=== PATIENT | female | born 1995 | race Caucasian/White ===

== ENCOUNTER 2016-12-02 19:27 | Emergency (ER) | payer MEDICAID ==
[~2016-12-02] VITALS: Ht 162.6 cm; Wt 81.6 kg
[~2016-12-02 19:27] MED LIST: DEPAKOTE500 MG PO; DESYREL GENERIC50 MG PO; METHYLPHENIDATE27 M1 PO; NOMEDS XX; RISPERDAL 0.50.5 MG PO
[2016-12-02 19:47] LABS: URINE BILIRUBIN - DIPSTICK NEGATIVE (NEG); URINE BLOOD NEGATIVE (NEG)
--- OUTSIDE RECORDS SUMMARY | 2016-12-02 19:54 | External Medical Summary Rpt ---
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 Interpretat Reference Comment ion Range Body 98.3 [degF] Temperature BP 81 mm[Hg] Diastolic BP Systolic 133 mm[Hg] O2% 99 % Respiratory 21 /min Rate 07-15-2013 17:20 Name Value Interpretat Reference Comment ion Range Body 98.3 [degF] Temperature BP 81 mm[Hg] Diastolic BP Systolic 133 mm[Hg] Heart 87 /min Rate/Pulse O2% 99 % Respiratory 21 /min Rate 02-13-2013 16:45 Name Value Interpretat Reference Comment ion Range BP 56 mm[Hg] Diastolic BP Systolic 124 mm[Hg] Heart 76 /min Rate/Pulse O2% 99 % Respiratory 20 /min Rate 02-13-2013 16:43 Name Value Interpretat Reference Comment ion Range BP 56 mm[Hg] Diastolic BP Systolic 124 mm[Hg] Heart 84 /min Rate/Pulse O2% 99 % Respiratory 20 /min Rate Results Labs Lab Lab Date Result Refere Interp Status Commen Order Detail nces retati t Range on B-HCG Ur Ql (07-15-2013 16:30) B-HCG NEGATIV NEG complet Ur Ql 014 E ed 16:30 URINALYSIS/COMPLETE (07-15-2013 16:30) URINE YELLOW YELLOW complet COLOR 014 ed 16:30 URINE CLEAR CLEAR complet APPEARA 014 ed NCE 16:30 URINE NEGATIV NEG complet GLUCOSE 014 E ed - 16:30 DIPSTIC K URINE NEGATIV NEG complet BILIRUB 014 E ed IN - 16:30 DIPSTIC K URINE NEGATIV NEG complet KETONE 014 E mg/dL ed 16:30 URINE 1.020 1.005-1 complet SPECIFI 014 UNK .030 ed C 16:30 GRAVITY URINE 3+ NEG complet BLOOD 014 ed 16:30 URINE 6.5 UNK 5.0-8.5 complet PH 014 ed 16:30 URINE NEGATIV NEG complet PROTEIN 014 E mg/dL ed - 16:30 DIPSTIC K URINE 0.2 NEG complet UROBILI 014 E.U./dL ed NOGEN - 16:30 DIPSTIC K URINE NEGATIV NEG complet NITRATE 014 E ed - 16:30 DIPSTIC K URINE NEGATIV NEG complet LEUK 014 E ed ESTERAS 16:30 E URINE 10-20 0 complet RBC 014 rbc/hpf ed 16:30 URINE 20-50 0-5 complet SQUAMOU 014 #/hpf ed S CELLS 16:30 URINE 1+ O complet BACTERI 014 ed A 16:30 COMPREHENSIVE METABOLIC PANEL (07-15-2013 16:15) Glucose 87 74-106 complet 014 mg/dL ed Bld-mCn 16:15 c BUN 9 mg/dL 7-18 complet Bld-mCn 014 ed c 16:15 Creat 0.8 0.6-1.0 complet SerPl-m 014 mg/dL ed Cnc 16:15 Creat 105 50-200 complet Cl 014 ML/MIN ed predict 16:15 ed SerPl C-G-vRa te GFR/BSA 92 59- complet .pred 014 ML/MIN ed SerPl 16:15 Schwart z-vRate Sodium 139 136-145 complet SerPl-s 014 mmoL/L ed Cnc 16:15 Potassi 4.0 3.5-5.1 complet um 014 mmoL/L ed SerPl-s 16:15 Cnc Chlorid 102 98-107 complet e 014 mmoL/L ed SerPl-s 16:15 Cnc CO2 27 21.0-32 complet SerPl-s 014 mmoL/L .0 ed Cnc 16:15 Calcium 8.9 8.5-10. complet 014 mg/dL 1 ed SerPl-m 16:15 Cnc Prot 8.0 6.4-8.2 complet SerPl-m 014 gm/dL ed Cnc 16:15 Albumin 4.2 3.4-5.0 complet 014 gm/dL ed SerPl-m 16:15 Cnc Globuli 3.8 1.3-3.2 complet n 014 gm/dL ed Ser-mCn 16:15 c Albumin 1.1 UNK 1.1-1.8 complet /Glob 014 ed SerPl-m 16:15 Rto Bilirub 0.2 0.2-1.0 complet 014 mg/dL ed SerPl-m 16:15 Cnc AST 6 U/L 15-37 complet SerPl-c 014 ed Cnc 16:15 ALT 15 U/L 12-78 complet SerPl-c 014 ed Cnc 16:15 ALP 96 U/L 50-136 complet SerPl-c 014 ed Cnc 16:15 LIPASE (07-15-2013 16:15) LIPASE 97 U/L 73-393 complet 014 ed 16:15 Valproate SerPl-mCnc (07-15-2013 16:15) Valproa 50.3 50-100 complet te 014 mcg/mL ed SerPl-m 16:15 Cnc CBC with AUTO DIFF (07-15-2013 16:15) WBC # 07-15-2 6.6 4.5-13. complet Bld 014 K/MM3 0 ed Auto 16:15 RBC # 07-15-2 4.93 4.2-5.4 complet Bld 014 M/mm3 ed Auto 16:15 Hgb 13.4 12.2-16 complet Bld-mCn 014 g/dL .2 ed c 16:15 Hct Fr 39.7 % 37.0-47 complet Bld 014 .0 ed 16:15 MCV RBC 80.6 fl 82.2-97 complet 014 .8 ed 16:15 MCH RBC 27.1 pg 27-31.2 complet Qn 014 ed Auto 16:15 MEAN 33.6 31.8-35 complet CORPUSC 014 g/dl .4 ed ULAR 16:15 HGB CONC RDW RBC 07-15-2 15.4 % 11.5-17 complet Auto 014 .5 ed 16:15 Platele 2 186 142-424 complet t Bld 014 K/mm3 ed Ql 16:15 Manual MEAN 8.6 fl 7.4-10. complet PLATELE 014 4 ed T 16:15 VOLUME Granulo 01-30-2 66.4 % 37.0-80 complet cytes 014 .0 ed Fr Bld 16:15 Auto LYMPH % -30-2 26.8 % 10-50.0 complet 014 ed 16:15 Monocyt -30-2 5.7 % 1.7-9.3 complet es Fr 014 ed Bld 16:15 Auto Eosinop -30-2 0.7 % 0.1-12. complet hil Fr 014 0 ed Bld 16:15 Auto Basophi -30-2 0.3 % 0.1-2.0 complet ls Fr 014 ed Bld 16:15 Auto Granulo -30-2 4.4 1.8-7.8 complet cytes # 014 K/mm3 ed Bld 16:15 Auto Lymphoc -30-2 1.8 0.7-4.5 complet ytes Fr 014 K/mm3 ed Bld 16:15 Auto Monocyt -30-2 0.4 0.1-1.0 complet es # 014 K/mm3 ed Bld 16:15 Auto Eosinop -30-2 0.1 0.0-0.4 complet hil # 014 K/mm3 ed Bld 16:15 Auto Basophi -30-2 0.0 0-0.2 complet ls # 014 K/MM3 ed Bld 16:15 Auto Procedures Procedure DOS Code Location Performer Comment OPHTH 27315 SCIFRES SCIFRES MEDICAL 6 ANG ANG XM&EVAL COMPRHNSV ESTAB PT 1/> IADNA 68460 JUD[facility] KIM NEISSERIA 6 [facility] GONORRHOE AE AMPLIFIED PROBE TQ IADNA 15850 JUDY KIM CHLAMYDIA 6 [facility] INC TRACHOMAT IS AMPLIFIED PROBE TQ REMOVAL 01624 [facility] NON-BIODE 6 PHYSICIAN PHYSICIAN GRADABLE S GROUP S GROUP DRUG DELIVERY IMPLANT FRAMES V2020 SCIFRES SCIFRES PURCHASES 5 ANG ANG SCRATCH V2760 SCIFRES SCIFRES RESISTANT 5 ANG ANG COATING PER LENS LENS V2784 SCIFRES SCIFRES POLYCARBO 5 ANG ANG TOO OR EQUAL ANY INDEX PER LENS RPR&REFIT 18359 SCIFRES SCIFRES G 5 ANG ANG SPECTACLE S EXCEPT APHAKIA SPHERE V2200 SCIFRES SCIFRES BIFOCL 5 ANG ANG PLANO TO PLUS/[place] S 4.00D PER LENS OPHTH 21801 SCIFRES SCIFRES MEDICAL 5 ANG ANG XM&EVAL COMPRHNSV ESTAB PT 1/> FRAMES V2020 SCIFRES SCIFRES PURCHASES 5 ANG ANG SCRATCH V2760 SCIFRES SCIFRES RESISTANT 5 ANG ANG COATING PER LENS LENS V2784 SCIFRES SCIFRES POLYCARBO 5 ANG ANG TOO OR EQUAL ANY INDEX PER LENS FITTING 08303 SCIFRES SCIFRES SPECTACLE 5 ANG ANG S XCPT APHAKIA MONOFOCAL SPHERE V2100 SCIFRES SCIFRES SINGLE 5 ANG ANG VISION PLANO +/- 4.00 PER LENS ANTIBODY 58011 COMBINED COMBINED CHLAMYDIA 4 PHYSICIAN PHYSICIAN S LA S LA CUL BACT 11414 COMBINED COMBINED XCPT 4 PHYSICIAN PHYSICIAN URINE S LA S LA BLOOD/STO OL AEROBIC ISOL SMR PRIM 17690 MARGIE [facility]ANSON SRC WET 4 [facility]IE ASHL[facility] MOUNT NFCT AGT ETONOGEST J7307 MARGIE HANSON REL 4 ASHLIE ASHLIE CNTRACPT IMPL SYS INCL IMPL & SPL URINE 32912 MARGIE HANSON 4 ASHLIE ASHLIE TEST VISUAL COLOR CMPRSN METHS RMVL 14080 MARGIE HANSON W/RINSJ 4 ASHLIE [place] [address] ADALBERTO ADALBERTO ABDOMEN & 4 GABRIELA GABRIELA PELVIS W/O CONTRAST MATERIAL TDAP 61693 JUDY KIM VACCINE 7 3 [facility] YRS/> IM INC INC IM ADM 54853 JUDY KIM PRQ ID 3 [facility] SUBQ/IM INC INC NJXS 1 VACCINE SIMPLE 62872 YOLIS LAGOS JAD REPAIR 3 SCALP/NEC K/AX/SANDRA T/TRUNK 2.5CM/< OPHTH 61554 [facility]ICAL 3 CHR CHR XM&EVAL INTERMEDI ATE NEW PT DETERMINA 63906 [facility] TION 3 CHR CHR REFRACTIV E STATE SMR PRIM 87090 MARGIE HANSON SRC WET 2 ASHLIE ASHLIE MOUNT NFCT AGT SBSQ 15095 JOSE ALEJANDRO [facility] 1 CARE/DAY 15 MINUTES INITIAL 01573 JOSE ALEJANDRO [facility] INPATIENT 1 CONSULT NEW/ESTAB PT 20 MIN ECG 07862 YANIV SEVILLA SEVILLA YANIV ROUTINE 1 MD ECG CONSULTIN W/LEAST G SRV 12 LDS I&R ONLY ETONOGEST J7307 [facility] REL 1 [facility] CNTRACPT CLINIC OF IMPL SYS PAYAM INCL IMPL & SPL URINE 90789 WOMEN'Chidi HANSON 1 HEALTH ASH[facility]IE TEST CLINIC OF VISUAL [place] COLOR CMPRSN METHS INSERTION 04866 [facility] MARGIE 1 HEALTH ASH[facility]IE IMPLANTAB CLINIC OF LE PAYAM CONTRACEP TIVE CAPSULES ECG 62871 YANIV SEVILLA SEVILLA YANIV ROUTINE 0 MD ECG CONSULTIN W/LEAST G SRV 12 LDS I&R ONLY INITIAL 40903 [facility], INPATIENT 9 URGENT KAL C CONSULT TREATMENT NEW/ESTAB ASSOC PT 55 MIN ELECTROEN 20068 MARTIN BELTRAN CEPHALOGR 8 MEDICAL TOUFIC A AM W/REC SERV [facility] WSY OPHTH 39023 DIANA ORTIZ MEDICAL 8 JEREMIAH A JEREMIAH A XM&EVAL COMPRHNSV ESTAB PT 1/> FRAMES V2020 DIANA ORTIZ, PURCHASES 8 JEREMIAH A JEREMIAH A FITTING 97303 DIANA ORTIZ SPECTACLE 8 JEREMIAH A JEREMIAH A S XCPT APHAKIA MONOFOCAL SPHERE V2100 DIANA ORTIZ SINGLE 8 JEREMIAH A JEREMIAH A VISION PLANO +/- 4.00 PER LENS BLOOD 54287 [facility] JUDY COUNT 8 [facility] N BANK ACCT CLOSURE 86.59 Usha MATHUR & Yolis SALGADO SUBCUTANE OUS NEC Encounters Encounter Start End Date Code Location Performer Type Date HOSPITAL JUDY - 6 6 [facility] OUTPATIEN INC T OFFICE 36382 [facility] MARGIE OUTPATIEN 6 6 PHYSICIAN ASHLIE T VISIT S GROUP 15 MINUTES EMERGENCY 64477 JUSTYNA SIMMS 6 6 PHYSICIAN ADITI DEPARTMEN S, PLLC T VISIT MODERATE SEVERITY OFFICE 46803 [facility] MARGIE OUTPATIEN 5 5 PHYSICIAN ASHLIE T VISIT S GROUP 15 MINUTES OFFICE 44739 MARGIE HANSON OUTPATIEN 4 4 ASHLIE ASHLIE T VISIT 15 MINUTES EMERGENCY 17969 ALFARIS ALFARIS 4 4 [facility] DEPARTMEN T VISIT MODERATE SEVERITY OFFICE 94113 MIKE JR OLLIERAN JR CONSULTAT 4 4 CHAPINCITO CHAPINCITO ION NEW/ESTAB PATIENT 60 MIN Emergency AJAY JOHNSTON MD (ER) 4 15:49 4 17:42 [facility] EMERGENCY 18937 PRESTON JOHNSTON 4 4 [facility]IS[facility] HIGH/URGE NT SEVERITY Emergency AJAY Lagos MD (ER) 3 16:21 3 16:45 [facility] JUDY - 3 3 [facility] OUTPATIEN INC T EMERGENCY 09673 JUDY 3 3 [facility] DEPARTMEN INC T VISIT MODERATE SEVERITY EMERGENCY [address] 3 3 DEPARTMEN T VISIT HIGH/URGE NT SEVERITY EMERGENCY 67548 [facility] 3 3 N DEPARTMEN COMMUNITY T VISIT HOSPITA LOW/MODER SEVERITY [facility] 3 3 N OUTPATIEN COMMUNITY T HOSPITA EMERGENCY 78466 [facility] 3 3 EMERGENCY [facility] DEPARTMEN SERVICES T VISIT MODERATE SEVERITY OFFICE 42947 MARGIE [facility]ANSON OUTPATIEN 2 2 ASHLIE ASHLIE T VISIT 15 MINUTES OFFICE 08926 [facility] 1 1 [facility]ALTH [facility] T VISIT CLINIC OF 15 PAYAM MINUTES OFFICE 82671 [facility] 1 1 HEALTH ASHLIE T NEW 30 CLINIC OF MINUTES PAYAM OFFICE 84264 [facility] OUTPATIEN 1 1 DON DON T VISIT 15 MINUTES OFFICE 20833 [facility] OUTPATIEN 0 0 DON DON T VISIT 15 MINUTES OFFICE 33973 [facility] OUTPATIEN 0 0 DON DON T VISIT 15 MINUTES OFFICE 34375 MARTÍNEZTANYA PENALOZA OUTPATIEN 0 0 DON R DON R T VISIT 15 MINUTES OFFICE 72944 [place] [facility], CONSULTAT 9 9 MEDICAL GARRETEDD CROOKS SERV NEW/ESTAB [facility]OUND[facility] PATIENT 40 MIN OFFICE 33490 TANYA MARTÍNEZ OUTPATIEN 9 9 DON R DON R T VISIT 15 MINUTES OFFICE 35864 TANYA MARTÍNEZ OUTPATIEN 9 9 DON R DON R T VISIT 15 MINUTES OFFICE 92821 TANYA MARTÍNEZ OUTPATIEN 8 8 DON R DON R T VISIT 15 MINUTES [facility] - 8 8 Y [facility] T OFFICE 86586 TANYA MARTÍNEZ OUTPATIEN 8 8 DON R DON R T VISIT 15 MINUTES OFFICE 74128 TANYA MARTÍNEZ OUTPATIEN 8 8 DON R DON R T VISIT 15 MINUTES INITIAL 82950 [facility] JUDY PREVENTIV 8 8 [facility] MEDIC[facility] B[facility] ACCT NEW PT AGE 12-17 YR
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
--- OUTSIDE RECORDS SUMMARY | 2016-12-02 19:58 | External Medical Summary Rpt ---
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 Role Phone ALFARIS MOH, ALFARIS Unavailable Unavailable MOH ALFARIS MOH, ALFARIS Unavailable Unavailable MOH ALLRAN JR CHAPINCITO, ALLRAN Unavailable Unavailable JR HCAPINCITO ALLRAN JR CHAPINCITO, ALLRAN Unavailable Unavailable JR CHAPINCITO JOHNSTON BRO, JOHNSTON Unavailable Unavailable BRO BAY, GARRET A, BAY, Unavailable Unavailable GARRET A HUNTER, KAL C, Unavailable Unavailable HUNTER, KAL C HANSON ASHLIE, HANSON Unavailable Unavailable ASHLIE HANSON ASHLIE, HANSON Unavailable Unavailable ASHLIE [facility] Unavailable [place]available [place], [facility] Unavailable Unavailable [facility], [facility] SEVILLA YANIV, SEVILLA YANIV Unavailable Unavailable ADALBERTO GABRIELA, Unavailable Unavailable ADALBERTO GABRIELA ADALBERTO GABRIELA, Unavailable Unavailable ADALBERTO GABRIELA [facility] [place] [place], [facility] [place] [facility] [place] [facility] DEVIN, TOUFIC A, Unavailable Unavailable DEVIN, TOUFIC A FOSTER JAM, FOSTER Unavailable Unavailable JAM DEMI ADITI, DEMI Unavailable Unavailable ADITI [facility] Unavailable Unavailable HOSPITA, [facility] Unavailable Unavailable CENTER, [facility] Unavailable Unavailable INC, [facility] ORTIZ JEREMIAH A, Unavailable Unavailable ORTIZ JEREMIAH A [facility], Unavailable Unavailable [facility] JOSE ALEJANDRO TODD Unavailable Unavailable JOSE ALEJANDRO TODD Unavailable Unavailable [facility] Unavailable Unavailable SERVICES, [facility], [facility] Unavailable Unavailable [facility], [facility] Unavailable Unavailable CHR YANIV SEVILLA MD Unavailable Unavailable CONSULTING SRV, YANIV SEVILLA MD CONSULTING SRV [facility], Unavailable [facility]available [facility], [facility] Unavailable [facility]available [id number] [id number], [facility] [id number] [address] [id number] SCIFRES ANG, SCIFRES Unavailable Unavailable ANG SCIFRES ANG, SCIFRES Unavailable Unavailable ANG MARTÍNEZ DON, Unavailable Unavailable MARTÍNEZ DON MARTÍNEZ DON, Unavailable Unavailable MARTÍNEZ DON MARTÍNEZ, DON R, Unavailable Unavailable MARTÍNEZ, DON R [facility], Unavailable Unavailable [facility] Unavailable Unavailable [address]591, [facility] YOLIS ROSALES Unavailable Unavailable YOLIS ROSALES Unavailable Unavailable [facility] Unavailable Unavailable OF [place], [facility] [place] Purpose Continuity of Care Document - 09-30-2007 through 2016 Problems Code Diagnosis DOS Provider Status 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 N926 IRREGULAR 11-21-2015 [facility]IO PHYSICIANS N GROUP UNSPECIFIED Z7251 HIGH RISK 11-21-2015 [facility] R109 UNSPECIFIED 09-09-2015 [facility] Z3040 ENCOUNTER 08-01-2015 [facility] FOR [facility] SURVEILLANC GROUP E CONTRACEPTI VES UNS Z3049 ENCOUNTER 08-01-2015 [facility] SURVEILLANC GROUP E OTHER CONTRACEPTI VES 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 3674 PRESBYOPIA 12-01-2014 SCIFRES ANG 3671 MYOPIA 06-30-2014 SCIFRES ANG V692 PROBLEMS 02-03-2014 COM[facility]ED RELATED TO PHYSICIANS HIGH-RISK LA SEXUAL BEHAVIOR 60877 UNSPECIFIED 02-02-2014 HANSON ASHLIE VAGINITIS AND VULVOVAGINI TIS 6235 LEUKORRHEA 02-02-2014 HANSON ASHLIE NOT SPECIFIED INFECTIVE 7245 UNSPECIFIED 12-29-2013 [facility] BACKACHE 8479 SPRAIN AND 12-29-2013 [facility] STRAIN OF UNSPECIFIED SITE OF BACK E9289 UNSPECIFIED 12-29-2013 [facility] ACCIDENT V2543 SURVEILLANC 09-07-2013 HANSON ASHLIE E PREV PRSC IMPL SUBDERMAL CONTRACEPT V255 INSERTION 09-07-2013 HANSON [place]SHLIE [place] [address] CALCU 08-03-2013 MIKE GARCIAADD CHAPINCITO W/ACUT CHOLCYST W/O MENTION OBST 64955 CALCU 07-15-2013 ADALBERTO LUIS GABRIELA W/O MENTION CHOLECYST/O BST 8920 OPEN WOUND 02-13-[address] FT NO TOE ALONE WITHOUT MENTION COMP V065 NEED 02-13-2013 [facility]LACTI [facility] VACCINATION W/TETANUS-D [facility] 18866 UNSPECIFIED 07-01-2012 [facility] ESOTROPIA 3829 UNSPECIFIED 06-27-2012 [facility] 7061 OTHER ACNE 03-14-2011 JOSE ALEJANDRO [place] V5869 LONG-TERM 03-14-2011 YANIV SEVILLA (CURRENT) USE OF CONSULTING OTHER SRV MEDICATIONS V2502 GENERAL 08-29-2010 [facility] [place] CONTRACEPT MEASURES V2509 OT GENERAL 08-29-2010 [facility] CONTRACEPT [place] MANAGEMENT 4659 ACUTE URIS 08-17-2010 MARTÍNEZ OF DON UNSPECIFIED SITE 4660 ACUTE 08-17-2010 MARTÍNEZ BRONCHITIS DON 9198 OTH&UNS SUP 06-13-2010 MARTÍNEZ INJR OTH DON MX&UNS SITE W/O MENTION INF 4779 ALLERGIC 05-09-2010 TANYA RHINITIS DON CAUSE UNSPECIFIED 684 IMPETIGO 09-26-2009 EMANUEL MARTÍNEZ R 7421 MICROCEPHAL 03-28-2009 [place] [facility] 49047 INSOMNIA 12-05-2008 [place] [place] UNSPECIFIED [facility] 39211 OTHER 05-25-2008 [place] [facility] V7189 OBSERVATION 05-25-2008 [facility] SPECIFIED SUSPECTED CONDITIONS 3670 HYPERMETROP 03-25-2008 PREET ORTIZ 6869 UNSPEC 03-16-2008 TANYA LOCAL DON R INFECTION SKIN&SUBCUT ANEOUS TISSUE 76529 UNSPEC 12-15-2007 TANYA EPILEPSY DON R WITHOUT MENTION INTRACT EPILEPSY V202 ROUTINE 09-30-2007 [facility] ACCT CHECK Medications Na ND Rx Da Fi Fi Am Da Di Ph RX Ph St me C No te ll ll ou ys ag ar # ys at rm s nt no ma ic us Or Da si cy ia de te s n re d CO 50 10 10 0 30 30 [...] .0 ST 58 EP ti AL 33 9- 9- 00 SI 73 HE ve EX 14 20 [...] 1- 1- 00 SI 77 HE ve MO 50 20 20 DE NS AM 81 10 10 3 PH DO HB AR N R MA R 20 CY MG OF TA CY BL NT ET HI AN A CO 50 08 08 [address] Ac NC 45 -0 -[address] 64 EP ti ER 80 9- 9- 00 SI 49 HE ve TA 58 [...] 7- 7- 00 SI 21 Av ve MO 00 20 20 DE ai AM 70 10 10 la 5 PH bl HB AR e R MA 40 CY MG OF TA CY BL NT ET HI AN A CO 50 07 07 0 30 30 EA 18 No Ac NC 45 -0 -[address] 26 t ti ER 80 7- 7- 00 SI 00 Av ve TA 58 20 [...] 7- 7- 00 SI 21 Av ve MO 34 20 20 DE ai AM 40 10 10 la 5 PH bl HB AR e R MA 40 CY MG OF TA CY BL NT ET HI AN A HY 00 06 06 1 30 30 EA [address] 55 -1 -[address] 02 t ti OX 50 7- 7- 00 SI 22 Av ve YZ 32 20 20 DE ai IN 30 10 10 la E 4 PH bl PA AR e M MA 25 CY MG OF CA CY P NT HI AN A CO 50 06 [...] 7- 7- 00 SI 37 HE ve MO 34 20 20 DE NS AM 30 [...] 3- 3- 00 SI 08 HE ve MO 34 20 20 DE NS AM 30 [...] ET NT HI AN A AB 59 02 03 1 30 30 EA 16 No Ac IL 14 -0 -[address] 29 t ti IF 80 8- 5- 00 SI 47 Av ve Y 00 20 20 DE ai 5 71 10 10 la MG 3 PH bl AR e TA MA BL CY ET OF CY NT HI AN A CI 55 02 03 1 45 30 EA 16 No Ac TA 11 -0 -[address] 29 t ti LO 10 8- 5- 00 SI 48 Av ve MO 34 20 20 DE ai AM 30 10 10 la 5 PH bl HB AR e R MA 20 CY MG OF TA CY BL NT ET HI AN A CI 00 02 02 00 45 30 EA 16 No Ac TA 37 -0 -[address] 29 t ti LO 86 8- 6- 00 SI 48 Av ve MO 23 20 20 DE ai AM 20 10 10 la 5 PH bl HB AR e R MA 20 CY MG OF CY TA NT BL HI ET AN A CO 50 02 02 00 30 30 EA 16 No Ac NC 45 -0 -[address] 29 t ti ER 80 8- 6- 00 SI 46 Av ve TA 58 20 20 DE ai 50 10 10 la ER 1 PH bl AR e 18 MA CY MG OF TA CY BL NT ET HI AN A AB 59 02 02 00 30 30 EA 16 No Ac IL 14 -0 -[address] 29 t ti IF 80 8- 6- 00 SI 47 Av ve Y 00 20 20 DE ai 5 71 10 10 la MG 3 PH bl AR e TA MA BL CY ET OF CY NT HI AN A CI 00 12 01 00 45 30 EA 15 No Ac TA 37 -1 -[address] 51 t ti LO 86 0- 4- 00 SI 48 Av ve MO 23 20 20 DE ai AM 20 09 10 la 5 PH bl HB AR e R MA 20 CY MG OF CY TA NT BL HI ET AN A AB 59 12 01 00 30 30 EA 15 No Ac IL 14 -1 -[address] 51 t ti IF 80 0- 4- 00 SI 54 Av ve Y 00 20 20 DE ai 5 71 09 10 la MG 3 PH bl AR e TA MA BL CY ET OF CY NT HI AN A CO 50 12 01 00 30 30 EA 15 No Ac NC 45 -1 -[address] 51 t ti ER 80 0- 4- 00 SI 56 Av ve TA 58 20 20 DE ai 50 09 10 la ER 1 PH bl AR e 18 MA CY MG OF TA CY BL NT ET HI AN A CI 55 11 12 01 15 30 EA 14 No Ac TA 11 -0 -[address] 93 t ti LO 10 2- 7- 00 SI 95 Av ve MO 34 20 20 DE ai AM 40 09 09 la 1 PH bl HB AR e R MA 40 CY MG OF CY TA NT BL HI ET AN A AB 59 11 12 01 30 30 EA 14 No Ac IL 14 -0 -[address] 93 t ti IF 80 2- 7- 00 SI 93 Av ve Y 00 20 20 DE ai 5 71 09 09 la MG 3 PH bl AR e TA MA BL CY ET OF CY NT HI AN A CO 50 11 12 00 30 30 EA 15 No Ac NC 45 -1 -[address] 19 t ti ER 80 8- 3- 00 SI 32 Av ve TA 58 20 20 DE ai 50 09 09 la ER 1 PH bl AR e 18 MA CY MG OF TA CY BL NT ET HI AN A TR 60 11 11 [...] 2- 9- 00 SI 95 Av ve MO 34 20 20 DE ai AM 40 [...] CY BL NT ET HI AN A TR 60 08 10 01 30 30 EA 14 No Ac AZ 50 -3 -[address] 05 t ti OD 52 1- 8- 00 SI 52 Av ve ON 65 20 20 DE ai E 30 09 09 la 50 1 PH bl AR e MG MA CY TA BL OF ET CY NT HI AN A AB 59 08 10 01 30 30 EA 14 No Ac IL 14 -3 -[address] 05 t ti IF 80 1- 8- 00 SI 54 Av ve Y 00 20 20 DE ai 5 71 09 09 la MG 3 PH bl AR e TA MA BL CY ET OF CY NT HI AN A CI 55 08 10 01 15 30 EA 14 No Ac TA 11 -3 -[address] 05 t ti LO 10 1- 8- 00 SI 53 Av ve MO 34 20 20 DE ai AM 40 09 09 la 1 PH bl HB AR e R MA 40 CY MG OF CY TA NT BL HI ET AN A CO 50 09 09 00 [...] 1- 0- 00 SI 53 Av ve MO 34 20 20 DE ai AM 40 09 09 la 1 PH bl HB AR e R MA 40 CY MG OF CY TA NT BL HI ET AN A MU 45 09 09 [address] Ac PI 80 -0 -[address] 10 EP ti RO 20 2- 0- 00 SI 55 HE ve CI 11 20 20 DE NS N 22 09 09 2% 2 PH DO AR N OI MA R NT CY ME NT OF CY NT HI AN A TR 60 07 08 01 [...] NT HI AN A CI 55 07 08 01 15 30 EA 13 GI Ac TA 11 -0 -[address] 36 LB ti LO 10 3- 3- 00 SI 85 ER ve MO 34 20 20 DE T AM 40 09 09 TA 1 PH ME HB AR LA R MA G 40 CY MG OF CY TA NT BL HI ET AN A AB 59 07 08 01 [...] HI AN A CO 50 08 08 00 [...] 3- 6- 00 SI 85 ER ve MO 34 20 20 DE T AM 40 [...] NT ET HI AN A AZ 00 12 12 [...] ET NT HI AN A CO 50 12 [...] er Refuse d TDAP COBB No VACCIN 2013 ON MEM E 7 HOSP YRS/> INC IM Procedures Procedure DOS Code Location Performer Comment OPHTH 13710 SCIFRES SCIFRES MEDICAL 6 ANG ANG XM&EVAL COMPRHNSV ESTAB PT 1/> IADNA 10685 JUDY KIM NEISSERIA 6 [facility] INC GONORRHOE AE AMPLIFIED PROBE TQ IADNA 40097 JUDY KIM CHLAMYDIA 6 [facility] INC TRACHOMAT IS AMPLIFIED PROBE TQ REMOVAL 98416 [facility] NON-BIODE 6 PHYSICIAN PHYSICIAN GRADABLE S GROUP S GROUP DRUG DELIVERY IMPLANT LENS V2784 SCIFRES SCIFRES POLYCARBO 5 ANG ANG TOO OR EQUAL ANY INDEX PER LENS SCRATCH V2760 SCIFRES SCIFRES RESISTANT 5 ANG ANG COATING PER LENS FRAMES V2020 SCIFRES SCIFRES PURCHASES 5 ANG ANG SPHERE V2200 SCIFRES SCIFRES BIFOCL 5 ANG ANG PLANO TO PLUS/[place]LAND[place] S 4.00D PER LENS RPR&REFIT 72632 SCIFRES SCIFRES G 5 ANG ANG SPECTACLE S EXCEPT APHAKIA OPHTH 30335 SCIFRES SCIFRES MEDICAL 5 ANG ANG XM&EVAL COMPRHNSV ESTAB PT 1/> LENS V2784 SCIFRES SCIFRES POLYCARBO 5 ANG ANG TOO OR EQUAL ANY INDEX PER LENS SCRATCH V2760 SCIFRES SCIFRES RESISTANT 5 ANG ANG COATING PER LENS FRAMES V2020 SCIFRES SCIFRES PURCHASES 5 ANG ANG SPHERE V2100 SCIFRES SCIFRES SINGLE 5 ANG ANG VISION PLANO +/- 4.00 PER LENS FITTING 58995 SCIFRES SCIFRES SPECTACLE 5 ANG ANG S XCPT APHAKIA MONOFOCAL CUL BACT 30171 COMBINED COMBINED XCPT 4 PHYSICIAN PHYSICIAN URINE S LA S LA BLOOD/STO OL AEROBIC ISOL ANTIBODY 61980 COMBINED COMBINED CHLAMYDIA 4 PHYSICIAN PHYSICIAN S LA S LA SMR PRIM 50535 MARGIE HANSON SRC WET 4 ASHLIE ASHLIE [facility] NFCT AGT ETONOGEST J7307 MARGIE HANSON REL 4 ASHLIE ASHLIE CNTRACPT IMPL SYS INCL IMPL & SPL RMVL 45854 MARGIE HANSON W/RINSJ 4 ASHLIE ASHLIE NON-BIODE GRADABLE DRUG DLVR IMPLT URINE 42362 MARGIE HANSON 4 ASHLIE ASHLIE [place] V[place] [address] ADALBERTO ADALBERTO ABDOMEN & 4 GABRIELA GABRIELA PELVIS W/O CONTRAST MATERIAL TDAP 51746 JUDY KIM VACCINE 7 3 [facility] YRS/> IM INC INC IM ADM 23854 JUDY KIM PRQ ID 3 [facility] SUBQ/IM INC INC NJXS 1 VACCINE SIMPLE 45194 JUDY KIM REPAIR 3 [facility] SCALP/NEC INC INC K/AX/SANDRA T/TRUNK 2.5CM/< DETERMINA 10743 [facility] TION 3 CHR CHR REFRACTIV E STATE OPHTH 02579 [facility] MEDICAL 3 CHR CHR XM&EVAL INTERMEDI ATE NEW PT SMR PRIM 54753 MARGIE HANSON SRC WET 2 ASHLIE ASHLIE [facility] NFCT AGT SBSQ 19052 [facility] 1 CARE/DAY 15 MINUTES INITIAL 15118 [facility] INPATIENT 1 CONSULT NEW/ESTAB PT 20 MIN ECG 19484 YANIV SEVILLA SEVILLA YANIV ROUTINE 1 MD ECG CONSULTIN W/LEAST G SRV 12 LDS I&R ONLY ETONOGEST J7307 [facility] REL 1 [facility]ALTH ASHLIE CNTRACPT CLINIC OF IMPL SYS [place] INCL IMPL & SPL URINE 21975 [facility] 1 HEALTH ASHLIE TEST CLINIC OF VISUAL [place] COLOR CMPRSN METHS INSERTION 59539 [facility] 1 [facility]ALTH ASHLIE IMPLANTAB CLINIC OF LE [place] CONTRACEP TIVE CAPSULES ECG 69477 YANIV SEVILLA SEVILLA YANIV ROUTINE 0 MD ECG CONSULTIN W/LEAST G SRV 12 LDS I&R ONLY INITIAL 46144 [facility] HUNTER, INPATIENT 9 URGENT KAL C CONSULT TREATMENT NEW/ESTAB ASSOC PT 55 MIN ELECTROEN 95745 MARTIN BELTRAN CEPHALOGR 8 MEDICAL TOUFIC A AM W/REC SERV [facility] WSY OPHTH 34545 DIANA ORTIZ, MEDICAL 8 JEREMIAH A JEREMIAH A XM&EVAL COMPRHNSV ESTAB PT 1/> FRAMES V2020 DIANA ORTIZ PURCHASES 8 JEREMIAH A JEREMIAH A FITTING 44194 DIANA ORTIZ SPECTACLE 8 JEREMIAH A JEREMIAH A S XCPT APHAKIA MONOFOCAL SPHERE V2100 DIANA ORTIZ SINGLE 8 JEREMIAH A JEREMIAH A VISION PLANO +/- 4.00 PER LENS BLOOD 24901 [facility] JUDY COUNT 8 [facility] ACCT Encounters Encounter Start End Date Code Location Performer Type Date OFFICE 35417 [facility] MARGIE JEFF 6 6 PHYSICIAN ASHLIE T VISIT S GROUP 15 MINUTES HOSPITAL JUDY - 6 6 [facility] OUTPATIEN INC T EMERGENCY 02984 JUSTYNA SIMMS 6 [facility] MODERATE SEVERITY OFFICE 91869 [facility] MARGIE JEFF 5 5 PHYSICIAN ASHLIE T VISIT S GROUP 15 MINUTES OFFICE 52924 MARGIE KEYPATIEN 4 4 ASHLIE ASHLIE T VISIT 15 MINUTES EMERGENCY 02350 ALFARIS ALFARIS 4 4 [facility] DEPARTMEN T VISIT MODERATE SEVERITY OFFICE 83970 MIKE MCKEON JR CONSULTAT 4 4 CHAPINCITO CHAPINCITO ION NEW/ESTAB PATIENT 60 MIN EMERGENCY 34430 [facility] 4 4 [facility] DEPARTMEN T VISIT HIGH/URGE NT SEVERITY EMERGENCY 51658 [facility] 3 3 [facility] DEPARTMEN INC T VISIT MODERATE SEVERITY HOSPITAL JUDY - 3 3 [facility] OUTPATIEN INC T EMERGENCY [address] 3 3 DEPARTMEN T VISIT HIGH/URGE NT SEVERITY HOSPITAL [facility] - 3 3 N OUTPATIEN COMMUNITY T HOSPITA EMERGENCY 78856 [facility] 3 3 N DEPARTMEN COMMUNITY T VISIT HOSPITA LOW/MODER SEVERITY EMERGENCY 72397 [facility] 3 3 EMERGENCY [facility] DEPARTMEN SERVICES T VISIT MODERATE SEVERITY OFFICE 75873 [facility] OUTPATIEN 2 2 ASHLIE ASHLIE T VISIT 15 MINUTES OFFICE 85026 [facility] 1 1 HEALTH ASHLIE T VISIT CLINIC OF 15 [place] MINUTES OFFICE 73596 [facility] 1 1 HEALTH ASHLIE T NEW 30 CLINIC OF MINUTES [place] OFFICE 56971 MARTÍNEZTREMAINE GRANTS OUTPATIEN 1 1 DON DON T VISIT 15 MINUTES OFFICE 39752 MARTÍNEZTREMAINE GRANTS OUTPATIEN 0 0 DON DON T VISIT 15 MINUTES OFFICE 46754 MARTÍNEZTREMAINE GRANTS OUTPATIEN 0 0 DON DON T VISIT 15 MINUTES OFFICE 56612 TANYA MARTÍNEZ, OUTPATIEN 0 0 DON R DON R T VISIT 15 MINUTES OFFICE 24057 MARTIN ROCHE, CONSULTAT 9 9 MEDICAL GARRET CROOKS SERV NEW/ESTAB FOUNDATIO PATIENT 40 MIN OFFICE 45517 TANYA MARTÍNEZ OUTPATIEN 9 9 DON R DON R T VISIT 15 MINUTES OFFICE 20990 TANYA MARTÍNEZ OUTPATIEN 9 9 DON R DON R T VISIT 15 MINUTES OFFICE 27374 TANYA MARTÍNEZ OUTPATIEN 8 8 DON R DON R T VISIT 15 MINUTES [facility] UNIVERSIT - 8 8 Y [facility] T OFFICE 12566 TANYA MARTÍNEZ OUTPATIEN 8 8 DON R DON R T VISIT 15 MINUTES OFFICE 31556 TANYA MARTÍNEZ OUTPATIEN 8 8 DON R DON R T VISIT 15 MINUTES INITIAL 60100 [facility] JUDY LANDAIV 8 8 [facility] MEDICINE BANK ACCT NEW PT AGE 12-17 YR
--- OUTSIDE RECORDS SUMMARY | 2016-12-02 19:58 | External Medical Summary Rpt ---
Author Author , Organization [employer] Address Unknown Phone Unavailable Care Team Providers Care Behavioral Health Specialist Name Role Phone ALFARIS MOH, ALFARIS Unavailable [...] GABRIELA ADALBERTO GABRIELA, Unavailable Unavailable ADALBERTO GABRIELA [facility] [place] [place], [facility] [place] [facility] [place] [facility] [place] DEVIN, TOUFIC A, Unavailable Unavailable DEVIN, TOUFIC A FOSTER JAM, FOSTER Unavailable Unavailable JAM DEMI ADITI, DEMI Unavailable Unavailable ADITI [facility] Unavailable Unavailable HOSPITA, [facility] Unavailable [facility]available CENTER, [facility] Unavailable Unavailable INC, [facility] ORTIZ JEREMIAH A, Unavailable Unavailable ORTIZ JEREMIAH A [facility], Unavailable Unavailable [facility] JOSE ALEJANDRO TODD Unavailable Unavailable JOSE ALEJANDRO TODD Unavailable Unavailable [facility] Unavailable Unavailable SERVICES, [facility] CH[facility], MCPEEK Unavailable Unavailable [facility] CH[facility], MCPEEK Unavailable Unavailable CHR YANIV SEVILLA MD Unavailable Unavailable CONSULTING SRV, YANIV SEVILLA MD [facility]ING [facility], Unavailable [facility]available [facility], [facility] Unavailable Unavailable [id number] [id number], [facility] [id number] [id number] SCIFRES ANG, SCIFRES Unavailable Unavailable ANG SCIFRES ANG, SCIFRES Unavailable Unavailable ANG MARTÍNEZ DON, Unavailable Unavailable MARTÍNEZ DON MARTÍNEZ DON, Unavailable Unavailable MARTÍNEZ DON MARTÍNEZ, DON R, Unavailable Unavailable MARTÍNEZ, DON R [facility], Unavailable Unavailable [facility] Unavailable Unavailable [address], [facility] YOLIS ROSALES Unavailable Unavailable YOLIS ROSALES Unavailable Unavailable [facility] Unavailable Unavailable OF [place], [facility] [place] Purpose Continuity of Care Document - 09-30-2007 through 2016 Problems Code Diagnosis DOS Provider Status 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 N926 IRREGULAR 11-21-2015 [facility] UNSPECIFIED Z7251 HIGH RISK 11-21-2015 [facility] R109 UNSPECIFIED 09-09-2015 [facility] Z3040 ENCOUNTER 08-01-2015 [facility] FOR [facility]ANS SURVEILLANC GROUP E CONTRACEPTI VES UNS Z3049 ENCOUNTER 08-01-2015 [facility] SURVEILLANC GROUP E OTHER CONTRACEPTI VES 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 3674 PRESBYOPIA 12-01-2014 SCIFRES ANG 3671 MYOPIA 06-30-2014 SCIFRES ANG V692 PROBLEMS 02-03-2014 COMBINED RELATED TO PHYSICIANS HIGH-RISK LA SEXUAL BEHAVIOR 13442 UNSPECIFIED 02-02-2014 [facility] VAGINITIS AND VULVOVAGINI TIS 6235 LEUKORRHEA 02-02-2014 [facility] NOT SPECIFIED INFECTIVE 7245 UNSPECIFIED 12-29-2013 [facility] BACKACHE 8479 SPRAIN AND 12-29-2013 [facility] STRAIN OF UNSPECIFIED SITE OF BACK E9289 UNSPECIFIED 12-29-2013 [facility] ACCIDENT V2543 SURVEILLANC 09-07-2013 [facility] E PREV PRSC IMPL SUBDERMAL CONTRACEPT V255 INSERTION 09-07-2013 [facility] [place] [address] CALCU 08-03-2013 MIKE GARCIAADD CHAPINCITO W/ACUT CHOLCYST W/O MENTION OBST 94356 CALCU 07-15-2013 ADALBERTO LUIS GABRIELA W/O MENTION CHOLECYST/O BST 8920 OPEN WOUND 02-13-[address] FT NO TOE ALONE WITHOUT MENTION COMP V065 NEED 02-13-2013 [facility]I [facility] VACCINATION W/TETANUS-D [facility] 79744 UNSPECIFIED 07-01-2012 [facility] ESOTROPIA 3829 UNSPECIFIED 06-27-2012 [facility] 7061 OTHER ACNE [...] MICROCEPHAL 03-28-2009 [place] [facility] 91051 INSOMNIA 12-05-2008 [place] [place] U[facility]PECIFIED [facility] 17505 OTHER 05-25-2008 [place] [facility] V7189 OBSERVATION 05-25-2008 [facility] SPECIFIED SUSPECTED CONDITIONS 3670 HYPERMETROP 03-25-2008 PREET ORTIZ 6869 UNSPEC 03-16-2008 [facility] LOCAL DON R INFECTION SKIN&SUBCUT ANEOUS TISSUE 73795 UNSPEC 12-15-2007 [facility] EPILEPSY DON R WITHOUT [...] 1- 1- 00 SI 77 HE ve NC 50 20 20 DE NS AM 81 [...] 7- 7- 00 SI 21 Av ve NC 00 20 20 DE ai AM 70 [...] 7- 7- 00 SI 21 Av ve NC 34 20 20 DE ai AM 40 [...] 7- 7- 00 SI 37 HE ve NC 34 20 20 DE NS AM 30 [...] 3- 3- 00 SI 08 HE ve NC 34 20 20 DE NS AM 30 [...] 8- 5- 00 SI 48 Av ve NC 34 20 20 DE ai AM 30 10 10 la 5 PH bl HB AR e R MA 20 CY MG OF TA CY BL NT ET HI AN A CI 00 02 02 00 45 30 EA 16 No Ac TA 37 -0 -[address] 29 t ti LO 86 8- 6- 00 SI 48 Av ve NC 23 20 20 DE ai AM 20 [...] 0- 4- 00 SI 48 Av ve NC 23 20 20 DE ai AM 20 [...] 2- 7- 00 SI 95 Av ve NC 34 20 20 DE ai AM 40 [...] 2- 9- 00 SI 95 Av ve NC 34 20 20 DE ai AM 40 [...] 1- 8- 00 SI 53 Av ve NC 34 20 20 DE ai AM 40 [...] 1- 0- 00 SI 53 Av ve NC 34 20 20 DE ai AM 40 [...] 3- 3- 00 SI 85 ER ve NC 34 20 20 DE T AM 40 [...] 3- 6- 00 SI 85 ER ve NC 34 20 20 DE T AM 40 [...] Procedure DOS Code Location Performer Comment OPHTH 85218 SCIFRES SCIFRES MEDICAL 6 ANG ANG XM&EVAL COMPRHNSV ESTAB PT 1/> IADNA 29868 [facility] KIM NEISSERIA 6 [facility] INC GONORRHOE AE AMPLIFIED PROBE TQ IADNA 62352 JUDY KIM CHLAMYDIA 6 [facility] INC TRACHOMAT IS AMPLIFIED PROBE TQ REMOVAL 61019 [facility] NON-BIODE 6 PHYSICIAN PHYSICIAN GRADABLE [...] TO PLUS/ORLANDO S 4.00D PER LENS RPR&REFIT 16339 SCIFRES SCIFRES G 5 ANG ANG SPECTACLE S EXCEPT APHAKIA OPHTH 49729 SCIFRES SCIFRES MEDICAL 5 ANG ANG XM&EVAL COMPRHNSV ESTAB PT 1/> LENS V2784 SCIFRES SCIFRES POLYCARBO 5 ANG ANG TOO OR EQUAL ANY INDEX PER LENS SCRATCH V2760 SCIFRES SCIFRES RESISTANT 5 ANG ANG COATING PER LENS FRAMES V2020 SCIFRES SCIFRES PURCHASES 5 ANG ANG SPHERE V2100 SCIFRES SCIFRES SINGLE 5 ANG ANG VISION PLANO +/- 4.00 PER LENS FITTING 77801 SCIFRES SCIFRES SPECTACLE 5 ANG ANG S XCPT APHAKIA MONOFOCAL CUL BACT 10863 COMBINED COMBINED XCPT 4 PHYSICIAN PHYSICIAN URINE S LA S LA BLOOD/STO OL AEROBIC ISOL ANTIBODY 58764 COMBINED COMBINED CHLAMYDIA 4 PHYSICIAN PHYSICIAN S LA S LA SMR PRIM 23185 [facility] SRC WET 4 [facility] A[facility] ETONOGEST J7307 MARGIE HANSON REL 4 ASHLIE ASHLIE CNTRACPT IMPL SYS INCL IMPL & SPL RMVL 41782 MARGIE HANSON W/RINSJ 4 ASHLIE ASHLIE NON-BIODE GRADABLE DRUG DLVR IMPLT URINE 01914 MARGIE HANSON 4 ASHLIE ASHLIE [place] V[place] [address] ADALBERTO ADALBERTO ABDOMEN & 4 GABRIELA GABRIELA PELVIS W/O CONTRAST MATERIAL TDAP 18552 JUDY KIM VACCINE 7 3 [facility] YRS/> IM INC INC IM ADM 59539 JUDY KIM PRQ ID 3 [facility] SUBQ/IM INC INC NJXS 1 VACCINE SIMPLE 80012 JUDY KIM REPAIR 3 [facility] SCALP/NEC INC INC K/AX/SANDRA T/TRUNK 2.5CM/< DETERMINA 03401 [facility] TION 3 CHR CHR REFRACTIV E STATE OPHTH 14804 [facility] MEDICAL 3 CHR CHR XM&EVAL INTERMEDI ATE NEW PT SMR PRIM 27519 MARGIE [facility]ANSON SRC WET 2 [facility] AGT SBSQ 89840 [facility] 1 CARE/DAY 15 MINUTES INITIAL 75134 [facility] IN[facility] 1 CONSULT NEW/ESTAB PT 20 MIN ECG 87501 YANIV SEVILLA SEVILLA YANIV ROUTINE 1 MD ECG CONSULTIN W/LEAST G SRV 12 LDS I&R ONLY ETONOGEST J7307 [facility] REL 1 HEALTH ASH[facility]IE CNTRACPT CLINIC OF IMPL SYS [place] INCL IMPL & SPL URINE 05342 [facility] 1 HEALTH ASH[facility]IE TEST CLINIC OF VISUAL [place] COLOR CMPRSN METHS INSERTION 33002 [facility] 1 HEALTH ASH[facility]IE IMPLANTAB CLINIC OF LE [place] CONTRACEP TIVE CAPSULES ECG 39530 YANIV SEVILLA SEVILLA YANIV ROUTINE 0 MD ECG CONSULTIN W/LEAST G SRV 12 LDS I&R ONLY INITIAL 65174 [facility] HUNTER, INPATIENT 9 URGENT KAL C CONSULT TREATMENT NEW/ESTAB ASSOC PT 55 MIN ELECTROEN 88856 MARTIN BELTRAN CEPHALOGR 8 MEDICAL TOUFIC A AM W/REC SERV AWAKE&JENNI [facility] WSY OPHTH 22479 DIANA ORTIZ, MEDICAL 8 JEREMIAH A JEREMIAH A XM&EVAL COMPRHNSV ESTAB PT 1/> FRAMES V2020 DIANA ORTIZ PURCHASES 8 JEREMIAH A JEREMIAH A FITTING 25304 DIANA ORTIZ SPECTACLE 8 JEREMIAH A JEREMIAH A S XCPT APHAKIA MONOFOCAL SPHERE V2100 DIANA ORTIZ SINGLE 8 JEREMIAH A JEREMIAH A VISION PLANO +/- 4.00 PER LENS BLOOD 11169 [facility] JUDY COUNT 8 [facility] ACCT Encounters Encounter Start End Date Code Location Performer Type Date OFFICE 68653 [facility] MARGIE JEFF 6 6 PHYSICIAN ASHLIE T VISIT S GROUP 15 MINUTES HOSPITAL JUDY - 6 6 [facility] OUTPATIEN INC T EMERGENCY 00243 [facility] SIMMS 6 6 [facility]ERATE SEVERITY OFFICE 32741 [facility] MARGIE JEFF 5 5 PHYSICIAN ASHLIE T VISIT S GROUP 15 MINUTES OFFICE 10391 MARGIE KEYPATIEN 4 4 ASHLIE ASHLIE T VISIT 15 MINUTES EMERGENCY 70891 ALFARIS ALFARIS 4 4 [facility] DEPARTMEN T VISIT MODERATE SEVERITY OFFICE 92374 MIKE MCKEON JR CONSULTAT 4 4 CHAPINCITO CHAPINCITO ION NEW/ESTAB PATIENT 60 MIN EMERGENCY 20546 [facility] 4 4 [facility] DEPARTMEN T VISIT HIGH/URGE NT SEVERITY EMERGENCY 91347 JUDY 3 3 [facility] DEPARTMEN INC T VISIT MODERATE SEVERITY HOSPITAL JUDY - 3 3 [facility] OUTPATIEN INC T EMERGENCY [address] 3 3 DEPARTMEN T VISIT HIGH/URGE NT SEVERITY HOSPITAL [facility] - 3 3 N OUTPATIEN COMMUNITY T HOSPITA EMERGENCY 95284 [facility] 3 3 N DEPARTMEN COMMUNITY T VISIT HOSPITA LOW/MODER SEVERITY EMERGENCY 87944 [facility] 3 3 EMERGENCY [facility] DEPARTMEN SERVICES T VISIT MODERATE SEVERITY OFFICE 94444 [facility] OUTPATIEN 2 2 ASHLIE ASHLIE T VISIT 15 MINUTES OFFICE 20837 [facility] 1 1 HEALTH ASHLIE T VISIT CLINIC OF 15 [place] MINUTES OFFICE 15526 [facility] OUT[facility] 1 1 HEALTH ASHLIE T NEW 30 CLINIC OF MINUTES [place] OFFICE 45593 MARTÍNEZTREMAINE GRANTS OUTPATIEN 1 1 DON DON T VISIT 15 MINUTES OFFICE 22862 MARTÍNEZTREMAINE GRANTS OUTPATIEN 0 0 DON DON T VISIT 15 MINUTES OFFICE 89617 MARTÍNEZTREMAINE GRANTS OUTPATIEN 0 0 DON DON T VISIT 15 MINUTES OFFICE 61639 TANYA MARTÍNEZ, OUTPATIEN 0 0 DON R DON R T VISIT 15 MINUTES OFFICE 09838 MARTIN ROCHE, CONSULTAT 9 9 MEDICAL GARRET CROOKS SERV NEW/ESTAB FOUNDATIO PATIENT 40 MIN OFFICE 41292 TANYA MARTÍNEZ OUTPATIEN 9 9 DON R DON R T VISIT 15 MINUTES OFFICE 91380 TANYA MARTÍNEZ OUTPATIEN 9 9 DON R DON R T VISIT 15 MINUTES OFFICE 62845 TANYA MARTÍNEZ OUTPATIEN 8 8 DON R DON R T VISIT 15 MINUTES [facility] UNIVERSIT - 8 8 Y [facility] T OFFICE 33395 TANYA MARTÍNEZ OUTPATIEN 8 8 DON R DON R T VISIT 15 MINUTES OFFICE 67752 TANYA MARTÍNEZ OUTPATIEN 8 8 DON R DON R T VISIT 15 MINUTES INITIAL 46129 [facility] JUDY LANDAIV 8 8 [facility] MEDICINE BANK ACCT NEW PT AGE 12-17 YR
--- OUTSIDE RECORDS SUMMARY | 2016-12-02 20:00 | External Medical Summary Rpt ---
Author Author , Organization [employer] Address Unknown Phone Unavailable Purpose Continuity of Care Document - 07-03-1995 through 2016 Immunization Name Date Route CVX Reacti Commen Provid Is Given on t er Refuse d Tdap, Histor H149 No Adsorb 2007 ical ed Inform ation - Source Unspec ified MMR Histor H149 No 1999 ical Inform ation - Source Unspec ified Polio- Histor H149 No OPV 1999 ical Inform ation - Source Unspec ified DTaP, Histor H149 No UF 1999 ical Inform ation - Source Unspec ified Varice Histor H149 No lla 1995 ical Inform ation - Source Unspec ified DTP-Hi Histor H149 No b 1995 ical Inform ation - Source Unspec ified MMR Histor H149 No 1995 ical Inform ation - Source Unspec ified Hep B, Histor H149 No UF 1995 ical Inform ation - Source Unspec ified DTP-Hi Histor H149 No b 1995 ical Inform ation - Source Unspec ified Polio- Histor H149 No OPV 1995 ical Inform ation - Source Unspec ified
[2016-12-02 20:12] LABS: HEMOGLOBIN 14.4 g/dL (12.2-16.2); LYMPH # 2.6 K/mm3 (0.7-4.5)
[2016-12-02 20:14] LABS: URINE SQUAMOUS CELLS TNTC #/hpf (0-5)
--- NOTE | 2016-12-02 21:20 | Emergency Room Report ---
History of Present Illness Time Seen by 2116 Presenting Problem in Triage Pt arrived:Walked Presenting Problem:PT STATES SHE HAD A "BUMP ON HER LEFT ABDOMEN AREA" AND SHE WAS TOLD THAT IT WAS A FATTY TUMOR A "COUPLE MONTHS AGO. PT STATES THE PAIN IS NOW RADIATING ACROSS HER STOMACH, SHE FEELS WEAK AND NAUSEAOUS. 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 N Clinical Suspician of Infection? N Mental Status: 1 - Regular (Normal Baseline) Sepsis Risk:Low Sepsis Risk Have you (or family members/close friends) recently traveled outside the [place]? N If Yes, where/when: Have you had exposure to infectious disease within the past month? N TB? Other? Specify: Source patient, RN notes reviewed, family, old records Exam Limitations no limitations Comment pt has upper abd pain with nausea but no fever or rash and no diarrhea and she has knot in abd which she has had for an extended period Cardiac Chest Pain Chest pain indicative of cardiac No Timing/Duration this evening Severity moderate ALLERGIES Coded Allergies: No Known Allergies (09/09/15) Home Medications Reported Medications No Home Medications (NO HOME MEDICATIONS) 1 EACH XX ONCE History Medical History General CAD? No Angina: No PA: No Hypertension? No Hyperlipidemia? No CHF? No DVT? No PE? No COPD? No Asthma? No Anemia? No GERD? No Gastric ulcers? No GI Bleed? No Hernia? No Thyroid Problems? No Hypothyroidism? No CVA? No Seizures? No Diabetes? No Renal Insuffiency? No End Stage Renal Disease? No UTI? No Stones? No BPH? No GB Disease: No Nephritic Syndrome? No Asplenia? No Hepatitis? No Sickle Cell Disease? No Arthritis? No Migraines? No Cataracts? No Glaucoma? No MRSA? No HIV? No TB? No Anxiety? Yes Depression? Yes Cancer? No More? Yes Additional hx: BIPOLAR AND ADD Immunization Hx DT/Tetanus 02/13/13 Surgical Hx Previous Surgery?N ENTRY REP Hx LMP 2 Weeks Ago Social History Smoking Hx Smoker: Current Every Day Smoker Tobacco: Yes Type Cigarettes Packs/day < 1 Pack Alcohol Alcohol: Yes Drugs none Review of Systems All Other Systems Reviewed and Negative Constitutional denies fever Eyes denies drainage ENT denies: ear pain, epistaxis, throat pain. Respiratory denies cough, denies shortness of breath, denies wheezing Cardiovascular denies chest pain, denies palpitations, denies syncope Gastrointestinal see HPI, abdominal pain, nausea, denies vomiting Genitourinary denies: dysuria, frequency, hesitancy, hematuria. Musculoskeletal denies back pain, denies joint pain, denies joint swelling, denies neck pain Skin denies rash Psychiatric/Neurological denies headache, denies seizure Physical Exam Vital Signs Vital Signs Date Time Temp Pulse Resp B/P Pulse O2 O2 Flow FiO2 Ox Delivery Rate 12/02 1936 77 20 122/78 99 12/02 1930 98.1 77 20 122/78 99 - WBC >12,000 or <4,000 or 10% bands? 2 or more SIRS Criteria Met? B/P:122/78 MAP:92 Creatinine >2.0? UA output<0.5ml/kg/hr for 2 hrs? Platelet count >100,000? Lactate >2.0mmol/1? INR >1.2 or PTT > than 60 sec? Evidence of Organ Dysfunction? Provider documented clinical suspician of infection? N Sepsis Criteria Count: 1 Sepsis Risk: Low Sepsis Risk General Appearance no apparent distress Eye Exam - bilateral eye PERRL, bilateral eye EOMI Ear, Nose, Throat normal ENT inspection Neck supple Respiratory Status No: respiratory distress. Cardiovascular regular rate/rhythm Peripheral Pulses Pulses normal Yes Gastrointestinal soft, no organomegaly, no pulsatile mass, no guarding, no rebound, small lipoma Extremities normal inspection Strength 4 Upper Ext (L), 4 Upper Ext (R), 4 Lower Ext (L), 4 Lower Ext (R) Neurologic alert, take off man II-XII nml as tested, no motor/sensory deficits Reflexes Reflexes normal Yes Mental status normal mood/affect Skin intact Medical Decision Making LABS/Meds/Orders Pt receiving controlled substance in ED? No Results/Orders Laboratory Tests 12/02/162004: Sodium 141, Potassium 3.9, Chloride 106, Carbon Dioxide 25, BUN 10, Creatinine 0.8, Estimated Creat Clear 142, Estimated GFR (MDRD) 90, Glucose 98, Calcium 9.0 , Total Bilirubin 0.3, AST 11 L, ALT 19, Alkaline Phosphatase 85, Total Protein 7.9, Albumin 3.8, Globulin 4.1 H, Albumin/Globulin Ratio 0.9 L, Amylase 47, Lipase 119, WBC 8.3, RBC 5.19, Hgb 14.4, Hct 43.6, MCV 84.1, RDW 13.6, Plt Count 226, MPV 8.6, Gran % 61.0, Gran # 5.1, Lymphocytes % 31.0, Monocytes % 5.2, Eosinophils % 2.3, Basophils % 0.4, Lymphocytes # 2.6, Monocytes # 0.4, Eosinophils # 0.2, Basophils # 0.0, PUBS MCHC 33.0, MCH 27.7 12/02/161939: Urine Color YELLOW, Urine Appearance SL CLOUDY, Urine pH 5.5, Ur Specific [place] >= 1.030, Urine Protein NEGATIVE, Urine Ketones NEGATIVE, Urine Blood NEGATIVE, Urine Nitrate NEGATIVE, Urine Bilirubin NEGATIVE, Urine Urobilinogen 0.2, Ur Leukocyte Esterase NEGATIVE, Urine RBC NONE, Urine WBC 5-10, Ur Squamous Epith Cells TNTC, Urine Bacteria 4+, Urine Glucose NEGATIVE Current Medication Orders Sig/Susana Start time Last Medication Dose Route Stop Time Status Admin Sodium Chloride 10 ML PRN PRN 12/02 1944 AC IV 12/03 1940 Orders Procedure Date/time Status DIET-NOTHING BY MOUTH 12/[address] ABD & PELVIS W/O CONTRAST 12/[address] ABD/PELVIS REQ 12/02 1940 Complete IV SALINE LOCK 12/02 1940 Active URINALYSIS/COMPLETE 12/02 1940 Complete URINE 12/02 1940 Complete LIPASE 12/02 1940 Complete COMPLETE METABOLIC PANEL 12/02 1940 Complete CBC WITH AUTO DIFF 12/02 1940 Complete AMYLASE 12/02 1940 Complete CULTURE, URINE 12/03 1939 Active XRAY/CT/US XRAY/CT/US CT abdomen, pelvis CT interpretation by discussed w/radiologist Time results known: 2122 CT Results abnormal (gallstones) Departure Departure Time of Disposition 2117 Disposition DC Home or Self Care(routine) Clinical Impression Primary Impression: Cholelithiasis Qualifiers: Cholelithiasis location: gallbladder Cholecystitis presence: without cholecystitis Biliary obstruction: without biliary obstruction Qualified Code: K80.20 - Calculus of gallbladder without cholecystitis without obstruction Secondary Impressions: Lipoma Qualifiers: Lipoma location: unspecified Qualified Code: D17.9 - Benign lipomatous neoplasm, unspecified Condition STABLE Referrals Nola SALGAOD,Amilcar VALENTINE MD,JONATHAN Chowdhury Patient Instructions DI for Gallstones Additional Instructions see surg for follow up Discharge Counseling Counseled pt/family regarding diagnosis, test results, follow up needs ED Critical Care Critical Care No at 5280
--- NOTE | 2016-12-02 21:20 | Emergency Room Report ---
History of Present Illness Time Seen by [id number] Presenting Problem in Triage Pt arrived:Walked Presenting Problem:PT STATES SHE HAD A "BUMP ON HER LEFT ABDOMEN AREA" AND SHE WAS TOLD THAT IT WAS A FATTY TUMOR A "COUPLE MONTHS AGO. PT STATES THE PAIN IS NOW RADIATING ACROSS HER STOMACH, SHE FEELS WEAK AND NAUSEAOUS. 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 N Clinical Suspician of Infection? N Mental Status: 1 - Regular (Normal Baseline) Sepsis Risk:Low Sepsis Risk Have you (or family members/close friends) recently traveled outside the [place]? N If Yes, where/when: Have you had exposure to infectious disease within the past month? N TB? Other? Specify: Source patient, RN notes reviewed, family, old records Exam Limitations no limitations Comment pt has upper abd pain with nausea but no fever or rash and no diarrhea and she has knot in abd which she has had for an extended period Cardiac Chest Pain Chest pain indicative of cardiac No Timing/Duration this evening Severity moderate ALLERGIES Coded Allergies: No Known Allergies (09/09/15) Home Medications Reported Medications No Home Medications (NO HOME MEDICATIONS) 1 EACH XX ONCE History Medical History General CAD? No Angina: No NH: No Hypertension? No Hyperlipidemia? No CHF? No DVT? No PE? No COPD? No Asthma? No Anemia? No GERD? No Gastric ulcers? No GI Bleed? No Hernia? No Thyroid Problems? No Hypothyroidism? No CVA? No Seizures? No Diabetes? No Renal Insuffiency? No End Stage Renal Disease? No UTI? No Stones? No BPH? No GB Disease: No Nephritic Syndrome? No Asplenia? No Hepatitis? No Sickle Cell Disease? No Arthritis? No Migraines? No Cataracts? No Glaucoma? No MRSA? No HIV? No TB? No Anxiety? Yes Depression? Yes Cancer? No More? 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 Respiratory denies cough, denies shortness of breath, denies wheezing Cardiovascular denies chest pain, denies palpitations, denies syncope Gastrointestinal see HPI, abdominal pain, nausea, denies vomiting Genitourinary denies: dysuria, frequency, hesitancy, hematuria. Musculoskeletal denies back pain, denies joint pain, denies joint swelling, denies neck pain Skin denies rash Psychiatric/Neurological denies headache, denies seizure Physical Exam Vital Signs Vital Signs Date Time Temp Pulse Resp B/P Pulse O2 O2 Flow FiO2 Ox Delivery Rate 12/02 1936 77 20 122/78 99 12/02 1930 98.1 77 20 122/78 99 - WBC >12,000 or <4,000 or 10% bands? 2 or more SIRS Criteria Met? B/P:122/78 MAP:92 Creatinine >2.0? UA output<0.5ml/kg/hr for 2 hrs? Platelet count >100,000? Lactate >2.0mmol/1? INR >1.2 or PTT > than 60 sec? Evidence of Organ Dysfunction? Provider documented clinical suspician of infection? N Sepsis Criteria Count: 1 Sepsis Risk: Low Sepsis Risk General Appearance no apparent distress Eye Exam - bilateral eye PERRL, bilateral eye EOMI Ear, Nose, Throat normal ENT inspection Neck supple Respiratory Status No: respiratory distress. 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 No Results/Orders Laboratory Tests 12/02/162004: Sodium 141, Potassium 3.9, Chloride 106, Carbon Dioxide 25, BUN 10, Creatinine 0.8, Estimated Creat Clear 142, Estimated GFR (MDRD) 90, Glucose 98, Calcium 9.0 , Total Bilirubin 0.3, AST 11 L, ALT 19, Alkaline Phosphatase 85, Total Protein 7.9, Albumin 3.8, Globulin 4.1 H, Albumin/Globulin Ratio 0.9 L, Amylase 47, Lipase 119, WBC 8.3, RBC 5.19, Hgb 14.4, Hct 43.6, MCV 84.1, RDW 13.6, Plt Count 226, MPV 8.6, Gran % 61.0, Gran # 5.1, Lymphocytes % 31.0, Monocytes % 5.2, Eosinophils % 2.3, Basophils % 0.4, Lymphocytes # 2.6, Monocytes # 0.4, Eosinophils # 0.2, Basophils # 0.0, PUBS MCHC 33.0, MCH 27.7 12/02/161939: Urine Color YELLOW, Urine Appearance SL CLOUDY, Urine pH 5.5, Ur Specific [place] >= 1.030, Urine Protein NEGATIVE, Urine Ketones NEGATIVE, Urine Blood NEGATIVE, Urine Nitrate NEGATIVE, Urine Bilirubin NEGATIVE, Urine Urobilinogen 0.2, Ur Leukocyte Esterase NEGATIVE, Urine RBC NONE, Urine WBC 5-10, Ur Squamous Epith Cells TNTC, Urine Bacteria 4+, Urine Glucose NEGATIVE Current Medication Orders Sig/Susana Start time Last Medication Dose Route Stop Time Status Admin Sodium Chloride 10 ML PRN PRN 12/02 1944 AC IV 12/03 1940 Orders Procedure Date/time Status DIET-NOTHING BY MOUTH 12/[address] ABD & PELVIS W/O CONTRAST 12/[address] ABD/PELVIS REQ 12/02 1940 Complete IV SALINE LOCK 12/02 1940 Active URINALYSIS/COMPLETE 12/02 1940 Complete URINE 12/02 1940 Complete LIPASE 12/02 1940 Complete COMPLETE METABOLIC PANEL 12/02 1940 Complete CBC WITH AUTO DIFF 12/02 1940 Complete AMYLASE 12/02 1940 Complete CULTURE, URINE 12/03 1939 Active XRAY/CT/US XRAY/CT/US CT abdomen, pelvis CT interpretation by discussed w/radiologist Time results known: 2122 CT Results abnormal (gallstones) Departure Departure Time of Disposition 2117 Disposition DC Home or Self Care(routine) Clinical Impression Primary Impression: Cholelithiasis Qualifiers: Cholelithiasis location: gallbladder Cholecystitis presence: without cholecystitis Biliary obstruction: without biliary obstruction Qualified Code: K80.20 - Calculus of gallbladder without cholecystitis without obstruction Secondary Impressions: Lipoma Qualifiers: Lipoma location: unspecified Qualified Code: D17.9 - Benign lipomatous neoplasm, unspecified Condition STABLE Referrals Nola SALGADO,Amlicar VALENTINE MD,JONATHAN Chowdhury Patient Instructions DI for Gallstones Additional Instructions see surg for follow up Discharge Counseling Counseled pt/family regarding diagnosis, test results, follow up needs ED Critical Care Critical Care No at [id number]
[2016-12-02 21:38] VITALS: BP 121/70
--- NOTE | 2016-12-03 08:46 | RADIOLOGY REPORT PS360 ---
CT ABD PELVIS W/O CONTRAST COMPARISON: CT scan abdomen pelvis 07/15/2013 HISTORY: Generalized abdominal pain TECHNIQUE: Multiaxial scans obtained from hemidiaphragms the pelvic floor and were performed without IV or oral contrast. Sagittal and coronal reformats were evaluated as well. FINDINGS: The lower lung hayes are clear. The liver spleen stomach and pancreas appear grossly normal. The gallbladder somewhat small containing multiple calcified gallstones. There is no pericholecystic fluid noted. The adrenal glands are normal. The kidneys are normal in size and there are no calculi and there is no obstructive uropathy of either kidney. Small bowel is normal, the appendix is identified and is normal. There are scattered stool throughout the colon. The uterus is normal in size and somewhat anteverted. Urinary bladder is decompressed. There is a small left ovarian cyst measuring 2.1 cm. There is no free fluid in pelvis. IMPRESSION: 1. Cholelithiasis, no definite findings to suggest cholecystitis 2. No evidence of renal or ureteral calculi and no other significant abnormality noted, I agree the [facility] report
== END 2016-12-02 21:39 | disposition home or self-care (01) ==
LOC: ER 19:27
PROVIDERS: Emergency Medicine
DX: K80.20 Calculus of gallbladder without cholecystitis without obstruction (principal); D17.9 Benign lipomatous neoplasm, unspecified; Z72.0 Tobacco use

== ENCOUNTER 2017-01-10 06:07 | Emergency (ER) | payer MEDICAID ==
[~2017-01-10] VITALS: Ht 162.6 cm; Wt 81.3 kg
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
[2017-01-10] MEDS ORDERED: DEPO-PROVER150 MG/M3 IM (06:21)
[2017-01-10] MEDS ORDERED: BENTYL GENERIC10 MG PO (06:21)
--- OUTSIDE RECORDS SUMMARY | 2017-01-10 06:21 | External Medical Summary Rpt ---
Demographics Preferred Language Maltese Marital Status Unknown Jainism Affiliation Unknown Race Unknown Ethnic Group Unknown Author Author , JESSICA LOPEZ Address Unknown Phone [email or web address] Care Team Providers Care Spring Former Machine Name Role Phone [facility] Unavailable Unavailable [place], [facility] [place] [facility] Unavailable Unavailable [id number] # [phone], [facility] [id number] # [phone] Purpose Continuity of Care Document - 08-28-2009 through 2016 Medications Na ND Rx Da Fi Fi [...] OF S CY NT HI AN A CO 50 [...] ST 53 EP ti IC 12 4- 4 00 SI 14 HE ve IL 02 [...] ST 53 EP ti RO 60 4- 4 00 SI 16 HE ve FE 46 20 20 DE NS N 40 11 11 40 5 PH DO 0 AR N MG MA R CY TA BL OF ET CY NT HI AN A 59 02 02 2 30 30 EA 21 NI Ac 76 -2 -[address] 43 SA ti 24 8- 8 00 SI 70 R ve 80 20 20 DE AM 20 11 11 JA 5 PH D AR MA CY OF CY NT HI AN A CO 50 02 02 0 30 30 EA 21 NI Ac NC 45 -2 -[address] 43 SA ti ER 80 8- 8 SI 71 R ve TA 58 20 [...] ST 92 EP ti ER 80 4- 4 00 SI 40 HE ve TA 58 [...] ST 58 EP ti EN 33 9- 9 00 SI 72 HE ve HY [address] 03 10 10 AM 2 PH DO IN AR N E MA R 50 CY MG OF CA CY PS NT UL HI E AN A CE 00 12 12 0 [address] Ac PH 09 -2 -[address] 58 EP ti AL 33 9- 9 SI 73 HE ve EX 14 [...] 03 ET 93 8 # 03 93 LO 45 11 11 1 30 30 [...] 1- 1- 00 SI 77 HE ve OK 50 20 20 DE NS AM 81 [...] 7- 7- 00 SI 21 Av ve OK 00 20 20 DE ai AM 70 [...] 7- 7- 00 SI 21 Av ve OK 34 20 20 DE ai AM 40 [...] CA CY P NT HI AN A AB 59 06 [...] 7- 7- 00 SI 37 HE ve OK 34 20 20 DE NS AM 30 [...] 3- 3- 00 SI 08 HE ve OK 34 20 20 DE NS AM 30 [...] 8- 5- 00 SI 48 Av ve OK 34 20 20 DE ai AM 30 10 10 la 5 PH bl HB AR e R MA 20 CY MG OF TA CY BL NT ET HI AN A
--- OUTSIDE RECORDS SUMMARY | 2017-01-10 06:21 | External Medical Summary Rpt ---
Demographics Preferred Language [place] Marital Status Unknown Mandaeism Affiliation Unknown Race Unknown Ethnic Group Unknown Author Author , JESSICA LOPEZ Address Unknown Phone Care Team Providers Care Scrap Preparer Name Role Phone [facility] Unavailable Unavailable [place], [facility] [place] [facility] Unavailable Unavailable [id number] # [phone], [facility] [id number] # [phone] Purpose Continuity of Care Document [...] 1- 1- 00 SI 77 HE ve RI 50 20 20 DE NS AM 81 [...] 7- 7- 00 SI 21 Av ve RI 00 20 20 DE ai AM 70 [...] 7- 7- 00 SI 21 Av ve RI 34 20 20 DE ai AM 40 [...] 7- 7- 00 SI 37 HE ve RI 34 20 20 DE NS AM 30 [...] 3- 3- 00 SI 08 HE ve RI 34 20 20 DE NS AM 30 [...] 8- 5- 00 SI 48 Av ve RI 34 20 20 DE ai AM 30 10 10 la 5 PH bl HB AR e R MA 20 CY MG OF TA CY BL NT ET HI AN A
--- OUTSIDE RECORDS SUMMARY | 2017-01-10 06:22 | External Medical Summary Rpt ---
Demographics Preferred Language Greek Marital Status Unknown Mormon Affiliation Unknown Race Unknown Ethnic Group Unknown Author Author , JESSICA LOPEZ Address Unknown Phone Immunization Unable to retrieve immunization data due to connection failure with Immunization Registry. Please try again later.
--- OUTSIDE RECORDS SUMMARY | 2017-01-10 06:22 | External Medical Summary Rpt ---
Demographics Preferred Language [place] Marital Status Unknown Quaker Affiliation Unknown Race Unknown Ethnic Group Unknown Author Author , JESSICA LOPEZ Address Unknown Phone Immunization Unable to retrieve immunization data due to connection failure with Immunization Registry. Please try again later.
--- OUTSIDE RECORDS SUMMARY | 2017-01-10 06:22 | External Medical Summary Rpt ---
Author Author HEIDYWESLEY Michel, [employer] Address Unknown Phone Unavailable Results Amylase [Enzymatic activity/volume] in Serum or Plasma Observa Value Referen Units Interpr Notes Date tion ce etation Range Amylase 25 - 115 U/L Normal No Dec 02 [Enzymati informati 2017 8:05 c on in PM activity/ source volume] data in Serum or Plasma Comprehensive metabolic 2000 panel in Serum or Plasma Observa Value Referen Units Interpr Notes Date tion ce etation Range Albumin/G 1.1 - 1.8 No Low No Dec 02 lobulin informati informati 2017 8:05 [Mass on in on in PM ratio] in source source Serum or data data Plasma Albumin 3.4 - 5.0 gm/dL Normal No Dec 02 [Mass/vol informati 2016 8:05 ume] in on in PM Serum or source Plasma data Alkaline 46 - 116 U/L Normal No Dec 02 phosphata informati 2017 8:05 se on in PM [Enzymati source c data activity/ volume] in Serum or Plasma Bilirubin 0.2 - 1.0 mg/dL Normal No Dec 02 .total informati 2016 8:05 [Mass/vol on in PM ume] in source Serum or data Plasma Urea 7 - 18 mg/dL Normal No Dec 02 nitrogen informati 2016 8:05 [Mass/vol on in PM ume] in source Serum or data Plasma Calcium 8.5 - mg/dL Normal No Dec 02 [Mass/vol 10.1 informati 2017 8:05 ume] in on in PM Serum or source Plasma data Chloride 98 - 107 mmoL/L Normal No Dec 02 [Moles/vo informati 2017 8:05 lume] in on in PM Serum or source Plasma data Carbon 21.0 - mmoL/L Normal No Dec 02 dioxide, 32.0 informati 2017 8:05 total on in PM [Moles/vo source lume] in data Serum or Plasma Creatinin 0.55 - mg/dL Normal No Dec 02 e 1.02 informati 2017 8:05 [Mass/vol on in PM ume] in source Serum or data Plasma Creatinin 50 - 200 ML/MIN Normal No Dec 02 e renal informati 2016 8:05 clearance on in PM source predicted data by Cockcroft -Gault formula Estimated 59- ML/MIN No REFERENCE Dec 02 informati RANGE: 2017 8:05 glomerula on in >60 PM r source ML/MIN/1. filtratio data 73 SQUARE n rate METERSIf (GF this patient is -A merican, then multiply theresult by 1.210. Globulin 1.3 - 3.2 gm/dL High No Dec 02 [Mass/vol informati 2016 8:05 ume] in on in PM Serum source data Glucose 74 - 106 mg/dL Normal No Dec 02 [Mass/vol informati 2016 8:05 ume] in on in PM Serum or source Plasma data Potassium 3.5 - 5.1 mmoL/L Normal No Dec 02 inform2016 8:05 [Moles/vo on in PM lume] in source Serum or data Plasma Sodium 136 - 145 mmoL/L Normal No Dec 02 [Moles/vo informati 2016 8:05 lume] in on in PM Serum or source Plasma data Aspartate 15 - 37 U/L Low No Dec 02 informati 2016 8:05 aminotran on in PM sferase source [Enzymati data c activity/ volume] in Serum or Plasma Alanine 12 - 78 U/L Normal No Dec 02 aminotran informati 2016 8:05 sferase on in PM [Enzymati source c data activity/ volume] in Serum or Plasma Protein 6.4 - 8.2 gm/dL Normal No Dec 02 [Mass/vol informati 2016 8:05 ume] in on in PM Serum or source Plasma data Lipase [Enzymatic activity/volume] in Serum or Plasma Observa Value Referen Units Interpr Notes Date tion ce etation Range Lipase 73 - 393 U/L Normal No Dec 02 [Enzymati informati 2016 8:05 c on in PM activity/ source volume] data in Serum or Plasma CBC W Auto Differential panel in Blood Observa Value Referen Units Interpr Notes Date tion ce etation Range Basophils 0 - 0.2 K/MM3 Normal No Dec 02 informati 2016 8:05 [#/volume on in PM ] in source Blood by data Automated count Basophils 0.1 - 2.0 % Normal No Dec 02 informati 2017 8:05 leukocyte on in PM s in source Blood by data Automated count Eosinophi 0.0 - 0.4 K/mm3 Normal No Dec 02 ls informati 2016 8:05 [#/volume on in PM ] in source Blood by data Automated count Eosinophi 0.1 - % Normal No Dec 02 ls/100 12.0 informati 2017 8:05 leukocyte on in PM s in source Blood by data Automated count Granulocy 1.8 - 7.8 K/mm3 Normal No Dec 02 ava informati 2016 8:05 [#/volume on in PM ] in source Blood by data Automated count Granulocy 37.0 - % Normal No Dec 02 ava/100 80.0 informati 2016 8:05 leukocyte on in PM s in source Blood by data Automated count Hematocri 37.0 - % Normal No Dec 02 t [Volume 47.0 informati 2016 8:05 on in PM Fraction] source of Blood data Hemoglobi 12.2 - g/dL Normal No Dec 02 n 16.2 informati 2016 8:05 [Mass/vol on in PM ume] in source Blood data Lymphocyt 0.7 - 4.5 K/mm3 Normal No Dec 02 es informati 2016 8:05 [#/volume on in PM ] in source Unspecifi data ed specimen by Automated count Lymphocyt 10 - 50.0 % Normal No Dec 02 es informati 2016 8:05 [#/volume on in PM ] in source Unspecifi data ed specimen by Automated count Erythrocy 27 - 31.2 pg Normal No Dec 02 te mean informati 2016 8:05 corpuscul on in PM ar source hemoglobi data n [Entitic mass] Erythrocy 31.8 - g/dl Normal No Dec 02 te mean 35.4 informati 2016 8:05 corpuscul on in PM ar source hemoglobi data n concentra tion [Mass/vol ume] by Automated count Erythrocy 82.2 - fl Normal No Dec 02 te mean 97.8 informati 2016 8:05 corpuscul on in PM ar volume source [Entitic data volume] by Automated count Monocytes 0.1 - 1.0 K/mm3 Normal No Dec 02 informati 2017 8:05 [#/volume on in PM ] in source Blood by data Automated count Monocytes 1.7 - 9.3 % Normal No Artem 19 /100 informati 2017 8:05 leukocyte on in PM s in source Blood by data Automated count Platelet 7.4 - fl Normal No Dec 02 mean 10.4 informati 2016 8:05 volume on in PM [Entitic source volume] data in Blood by Automated count Platelets 142 - 424 K/mm3 Normal No Dec 02 informati 2016 8:05 [#/volume on in PM ] in source Blood data Erythrocy 4.2 - 5.4 M/mm3 Normal No Dec 02 ava informati 2016 8:05 [#/volume on in PM ] in source Amniotic data fluid Erythrocy 11.5 - % Normal No Dec 02 te 17.5 informati 2016 8:05 distribut on in PM ion width source [Entitic data volume] by Automated count Leukocyte 4.8 - K/MM3 Normal No Dec 02 s 10.8 informati 2016 8:05 [#/volume on in PM ] in source Blood data Choriogonadotropin.beta subunit [Units] in 24 hour Urine Observa Value Referen Units Interpr Notes Date tion ce etation Range Choriogon NEG No No No Dec 02 adotropin informati informati informati 2016 7:40 .beta on in on in on in PM subunit source source source [Units] data data data in 24 hour Urine
[2017-01-10 06:34] LABS: URINE BILIRUBIN - DIPSTICK NEGATIVE (NEG); URINE BLOOD NEGATIVE (NEG)
[2017-01-10 06:40] LABS: URINE SQUAMOUS CELLS 20-50 #/hpf (0-5)
--- NOTE | 2017-01-10 06:53 | Emergency Room Report ---
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 STATES EVERY TIME SHE EATS SHE FEEL NAUSEOUS BUT DOESNT VOMIT. HAS BEEN TO ED NUMEROUS TIMES BUIT NEVER RECEIVED TEST RESULTS. 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 N Clinical Suspician of Infection? N Mental Status: 1 - Regular (Normal Baseline) Sepsis Risk:Low Sepsis Risk Have you (or family members/close friends) recently traveled outside the [place]? N If Yes, where/when: Have you had exposure to infectious disease within the past month? N TB? Other? Specify: Source patient, RN notes reviewed, EMS, old records Exam Limitations no limitations Comment pt with ongoing upper abd pain which has been eval in ad and pcp and dr castillo - Cardiac Chest Pain Chest pain indicative of cardiac No Timing/Duration this morning Severity moderate ALLERGIES Coded Allergies: No Known Allergies (09/09/15) Home Medications Reported Medications No Home Medications (NO HOME MEDICATIONS) 1 EACH XX ONCE Medroxyprogesterone Acetate (Depo-Provera) 150 MG IM Q 3 MONTHS Dicyclomine Hcl (Bentyl (Generic) 10MG Capsule) 10 MG PO QID History Medical History General CAD? No Angina: No [place]: No Hypertension? No Hyperlipidemia? No CHF? No DVT? No PE? No COPD? No Asthma? No Anemia? No GERD? No Gastric ulcers? No GI Bleed? No Hernia? No Thyroid Problems? No Hypothyroidism? No CVA? No Seizures? No Diabetes? No Renal Insuffiency? No End Stage Renal Disease? No UTI? No Stones? No BPH? No GB Disease: No Nephritic Syndrome? No Asplenia? No Hepatitis? No Sickle Cell Disease? No Arthritis? No Migraines? No Cataracts? No Glaucoma? No MRSA? No HIV? No TB? No Anxiety? Yes Depression? Yes Cancer? No More? 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 Respiratory denies cough, denies shortness of breath, denies wheezing Cardiovascular denies chest pain, denies palpitations, denies syncope Gastrointestinal see HPI, abdominal pain, nausea, denies vomiting Genitourinary denies: dysuria, frequency, hesitancy, hematuria. Musculoskeletal denies back pain, denies joint pain, denies joint swelling, denies neck pain Skin denies rash Psychiatric/Neurological denies headache, denies seizure Physical Exam Vital Signs Vital Signs Date Time Temp Pulse Resp B/P Pulse O2 O2 Flow FiO2 Ox Delivery Rate 01/10 0707 97.7 58 18 117/70 94 01/10 0609 97.7 61 18 102/67 96 - WBC >12,000 or <4,000 or 10% bands? 2 or more SIRS Criteria Met? B/P:117/70 MAP:78 Creatinine >2.0? UA output<0.5ml/kg/hr for 2 hrs? Platelet count >100,000? Lactate >2.0mmol/1? INR >1.2 or PTT > than 60 sec? Evidence of Organ Dysfunction? Provider documented clinical suspician of infection? N Sepsis Criteria Count: 0 Sepsis Risk: Low Sepsis Risk General Appearance no apparent distress Eye Exam - bilateral eye PERRL, bilateral eye EOMI Ear, Nose, Throat normal ENT inspection Neck supple Respiratory Status No: respiratory distress. Cardiovascular regular rate/rhythm Peripheral Pulses Pulses normal Yes Gastrointestinal soft, no organomegaly, no pulsatile mass, no guarding, no rebound Back no CVA tenderness Extremities normal inspection Strength 4 Upper Ext (L), 4 Upper Ext (R), 4 Lower Ext (L), 4 Lower Ext (R) Neurologic alert, doctor of podiatric medicine II-XII nml as tested, no motor/sensory deficits Reflexes Reflexes normal No Mental status normal mood/affect Skin intact Medical Decision Making LABS/Meds/Orders Pt receiving controlled substance in ED? No Results/Orders Laboratory Tests 01/10/17 0715: Sodium 141, Potassium 3.7, Chloride 106, Carbon Dioxide 28, BUN 16, Creatinine 0.9, Estimated Creat Clear 126, Estimated GFR (MDRD) 78, Glucose 114 H, Calcium 8.8, Total Bilirubin 0.2, AST 12 L, ALT 18, Alkaline Phosphatase 72, Total Protein 7.4, Albumin 3.7, Globulin 3.7 H, Albumin/Globulin Ratio 1.0 L, Amylase 41, Lipase 109, WBC 12.8 H, RBC 4.77, Hgb 13.4, Hct 40.8, MCV 85.5, RDW 13.2, Plt Count 163, MPV 9.0, Gran % 77.4, Gran # 9.9 H, Lymphocytes % 15.1, Monocytes % 5.3, Eosinophils % 1.8, Basophils % 0.4, Lymphocytes # 2.0, Monocytes # 0.7, Eosinophils # 0.2, Basophils # 0.1, PUBS MCHC 32.9, MCH 28.1 01/10/17 0625: Urine Color YELLOW, Urine Appearance CLOUDY, Urine pH 6.5, Ur Specific [place] 1.025, Urine Protein TRACE H, Urine Ketones NEGATIVE, Urine Blood NEGATIVE, Urine Nitrate NEGATIVE, Urine Bilirubin NEGATIVE, Urine Urobilinogen 2.0, Ur Leukocyte Esterase NEGATIVE, Urine WBC 3-5, Ur Squamous Epith Cells 20-50, Urine Bacteria 4+, Urine Glucose NEGATIVE Orders Procedure Date/time Status LIPASE 01/10 07 Complete COMPLETE METABOLIC PANEL 01/10 07 Complete CBC WITH AUTO DIFF 01/10 07 Complete AMYLASE 01/10 0703 Complete URINALYSIS/COMPLETE 01/10 0626 Complete URINE 01/10 0626 Complete CULTURE, URINE 01/10 0625 Active Departure Departure Time of Disposition 0759 Disposition [place] Home or Self Care(routine) Clinical Impression Primary Impression: Cholelithiasis Qualifiers: Cholelithiasis location: gallbladder Cholecystitis presence: without cholecystitis Biliary obstruction: without biliary obstruction Qualified Code: K80.20 - Calculus of gallbladder without cholecystitis without obstruction Condition STABLE Referrals STONE GABE, RENETTA Rose Patient Instructions DI for General Gallbladder Conditions Additional Instructions see pcp and dr castillo for follow up Discharge Counseling Counseled pt/family regarding diagnosis, test results, follow up needs ED Critical Care Critical Care No at 0801
--- NOTE | 2017-01-10 06:53 | Emergency Room Report ---
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 STATES EVERY TIME SHE EATS SHE FEEL NAUSEOUS BUT DOESNT VOMIT. HAS BEEN TO ED NUMEROUS TIMES BUIT NEVER RECEIVED TEST RESULTS. 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 N Clinical Suspician of Infection? N Mental Status: 1 - Regular (Normal Baseline) Sepsis Risk:Low Sepsis Risk Have you (or family members/close friends) recently traveled outside the [place]? N If Yes, where/when: Have you had exposure to infectious disease within the past month? N TB? Other? Specify: Source patient, RN notes reviewed, EMS, old records Exam Limitations no limitations Comment pt with ongoing upper abd pain which has been eval in ad and pcp and dr castillo - Cardiac Chest Pain Chest pain indicative of cardiac No Timing/Duration this morning Severity moderate ALLERGIES Coded Allergies: No Known Allergies (09/09/15) Home Medications Reported Medications No Home Medications (NO HOME MEDICATIONS) 1 EACH XX ONCE Medroxyprogesterone Acetate (Depo-Provera) 150 MG IM Q 3 MONTHS Dicyclomine Hcl (Bentyl (Generic) 10MG Capsule) 10 MG PO QID History Medical History General CAD? No Angina: No [place]: No Hypertension? No Hyperlipidemia? No CHF? No DVT? No PE? No COPD? No Asthma? No Anemia? No GERD? No Gastric ulcers? No GI Bleed? No Hernia? No Thyroid Problems? No Hypothyroidism? No CVA? No Seizures? No Diabetes? No Renal Insuffiency? No End Stage Renal Disease? No UTI? No Stones? No BPH? No GB Disease: No Nephritic Syndrome? No Asplenia? No Hepatitis? No Sickle Cell Disease? No Arthritis? No Migraines? No Cataracts? No Glaucoma? No MRSA? No HIV? No TB? No Anxiety? Yes Depression? Yes Cancer? No More? 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 Respiratory denies cough, denies shortness of breath, denies wheezing Cardiovascular denies chest pain, denies palpitations, denies syncope Gastrointestinal see HPI, abdominal pain, nausea, denies vomiting Genitourinary denies: dysuria, frequency, hesitancy, hematuria. Musculoskeletal denies back pain, denies joint pain, denies joint swelling, denies neck pain Skin denies rash Psychiatric/Neurological denies headache, denies seizure Physical Exam Vital Signs Vital Signs Date Time Temp Pulse Resp B/P Pulse O2 O2 Flow FiO2 Ox Delivery Rate 01/10 0707 97.7 58 18 117/70 94 01/10 0609 97.7 61 18 102/67 96 - WBC >12,000 or <4,000 or 10% bands? 2 or more SIRS Criteria Met? B/P:117/70 MAP:78 Creatinine >2.0? UA output<0.5ml/kg/hr for 2 hrs? Platelet count >100,000? Lactate >2.0mmol/1? INR >1.2 or PTT > than 60 sec? Evidence of Organ Dysfunction? Provider documented clinical suspician of infection? N Sepsis Criteria Count: 0 Sepsis Risk: Low Sepsis Risk General Appearance no apparent distress Eye Exam - bilateral eye PERRL, bilateral eye EOMI Ear, Nose, Throat normal ENT inspection Neck supple Respiratory Status No: respiratory distress. Cardiovascular regular rate/rhythm Peripheral Pulses Pulses normal Yes Gastrointestinal soft, no organomegaly, no pulsatile mass, no guarding, no rebound Back no CVA tenderness Extremities normal inspection Strength 4 Upper Ext (L), 4 Upper Ext (R), 4 Lower Ext (L), 4 Lower Ext (R) Neurologic alert, echocardiographer II-XII nml as tested, no motor/sensory deficits Reflexes Reflexes normal No Mental status normal mood/affect Skin intact Medical Decision Making LABS/Meds/Orders Pt receiving controlled substance in ED? No Results/Orders Laboratory Tests 01/10/17 0715: Sodium 141, Potassium 3.7, Chloride 106, Carbon Dioxide 28, BUN 16, Creatinine 0.9, Estimated Creat Clear 126, Estimated GFR (MDRD) 78, Glucose 114 H, Calcium 8.8, Total Bilirubin 0.2, AST 12 L, ALT 18, Alkaline Phosphatase 72, Total Protein 7.4, Albumin 3.7, Globulin 3.7 H, Albumin/Globulin Ratio 1.0 L, Amylase 41, Lipase 109, WBC 12.8 H, RBC 4.77, Hgb 13.4, Hct 40.8, MCV 85.5, RDW 13.2, Plt Count 163, MPV 9.0, Gran % 77.4, Gran # 9.9 H, Lymphocytes % 15.1, Monocytes % 5.3, Eosinophils % 1.8, Basophils % 0.4, Lymphocytes # 2.0, Monocytes # 0.7, Eosinophils # 0.2, Basophils # 0.1, PUBS MCHC 32.9, MCH 28.1 01/10/17 0625: Urine Color YELLOW, Urine Appearance CLOUDY, Urine pH 6.5, Ur Specific [place] 1.025, Urine Protein TRACE H, Urine Ketones NEGATIVE, Urine Blood NEGATIVE, Urine Nitrate NEGATIVE, Urine Bilirubin NEGATIVE, Urine Urobilinogen 2.0, Ur Leukocyte Esterase NEGATIVE, Urine WBC 3-5, Ur Squamous Epith Cells 20-50, Urine Bacteria 4+, Urine Glucose NEGATIVE Orders Procedure Date/time Status LIPASE 01/10 07 Complete COMPLETE METABOLIC PANEL 01/10 07 Complete CBC WITH AUTO DIFF 01/10 07 Complete AMYLASE 01/10 0703 Complete URINALYSIS/COMPLETE 01/10 0626 Complete URINE 01/10 0626 Complete CULTURE, URINE 01/10 0625 Active Departure Departure Time of Disposition 0759 Disposition [place] Home or Self Care(routine) Clinical Impression Primary Impression: Cholelithiasis Qualifiers: Cholelithiasis location: gallbladder Cholecystitis presence: without cholecystitis Biliary obstruction: without biliary obstruction Qualified Code: K80.20 - Calculus of gallbladder without cholecystitis without obstruction Condition STABLE Referrals STONE GABE, RENETTA Rose Patient Instructions DI for General Gallbladder Conditions Additional Instructions see pcp and dr castillo for follow up Discharge Counseling Counseled pt/family regarding diagnosis, test results, follow up needs ED Critical Care Critical Care No at 0801
[2017-01-10 07:21] LABS: HEMOGLOBIN 13.4 g/dL (12.2-16.2); LYMPH % 15.1 % (10-50.0)
[2017-01-10 08:34] VITALS: BP 115/65
== END 2017-01-10 08:36 | disposition home or self-care (01) ==
LOC: ER 06:07
PROVIDERS: Emergency Medicine
DX: K80.20 Calculus of gallbladder without cholecystitis without obstruction (principal); Z72.0 Tobacco use; F41.8 Other specified anxiety disorders

== ENCOUNTER 2017-05-08 12:41 | Emergency (ER) | payer MEDICAID ==
[~2017-05-08] VITALS: Ht 162.6 cm; Wt 88.5 kg
[~2017-05-08 12:41] MED LIST changes: +BENTYL GENERIC10 MG PO; +DEPO-PROVER150 MG/M3 IM
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
--- OUTSIDE RECORDS SUMMARY | 2017-05-08 12:56 | External Medical Summary Rpt | CCD ---
Author Author , JESSICA LOPEZ Address Unknown Phone [email or web address] Care Team Providers Care Development Manager Name Role Phone ALFARIS MOH, ALFARIS Unavailable Unavailable MOH ALLRAN JR CHAPINCITO, ALLRAN Unavailable Unavailable JR CHAPINCITO BAY, GARRET A, BAY, Unavailable Unavailable GARRET A [facility] Unavailable Unavailable SERVICE, [facility] HUNTER, KAL C, Unavailable Unavailable HUNTER, KAL C MARGIE DAILEY, HANSON Unavailable Unavailable [facility] Unavailable [place]available [place], [facility] [place] [facility] Unavailable Unavailable [facility] GABRIELA, Unavailable Unavailable [facility] Unavailable Unavailable [place], [facility] [place] [facility] Unavailable Un[place] [facility] [place] DEVIN, TOUFIC A, Unavailable Unavailable DEVIN, TOUFIC A [facility] Unavailable Unavailable [facility] Unavailable Unavailable INC, [facility] JEREMIAH ORTIZ A, Unavailable Unavailable JEREMIAH ORTIZ A [facility], Unavailable Unavailable [facility] JOSE ALEJANDRO TODD Unavailable Unavailable [facility] Unavailable Unavailable SERVICES, [facility]K CHR, MC[facility]K Unavailable Unavailable [facility] YANIV SEVILLA MD Unavailable Unavailable CONSULTING SRVYANIV MD CONSULTING [facility], Unavailable Unavailable PLLC, [facility], [facility] Unavailable Unavailable [id number] [id number], [facility] [address] [address] SCIFRES ANG, SCIFRES Unavailable Unavailable JAYCOB MARTÍNEZ DON, Unavailable Unavailable MARTÍNEZEMANUEL VILLEDA R, Unavailable Unavailable EMANUEL MARTÍNEZ R [facility], Unavailable Unavailable [facility] Unavailable Unavailable [address], [facility] YOLIS ROSALES Unavailable Unavailable [facility] Unavailable Unavailable [place], [facility] [place] Purpose Continuity of Care Document - 09-30-2007 through 2016 Problems Code Diagnosis DOS Provider Status R1032 LEFT LOWER 02-12-2017 [facility] Z720 TOBACCO USE 02-12-2017 [facility] [id number] LACERATION 02-07-2017 [facility] W/O FB [...] W/O PHYSICIANS CHOLECYSTIT GROUP IS W/O OBSTRUCTION [id number] ENCOUNTER 01-13-2017 [facility] FOR OTHER [facility] PREPROCEDUR INC AL EXAMINATION R109 UNSPECIFIED 01-10-2017 [facility] PAIN SERVICE R1901 RUQ 12-25-2016 [...] RELATED TO PHYSICIANS HIGH-RISK [place] [facility] 30611 UNSPECIFIED 02-02-2014 HANSON ASHLIE VAGINITIS AND VULVOVAGINI TIS 6235 LEUKORRHEA 02-02-2014 [facility] ASHLIE NOT SPECIFIED INFECTIVE 7245 UNSPECIFIED 12-29-2013 ALFARIS MOH BACKACHE 8479 SPRAIN AND 12-29-2013 [facility] MOH STRAIN OF UNSPECIFIED SITE OF BACK E9289 UNSPECIFIED 12-29-2013 [facility] ACCIDENT V2543 SURVEILLANC 09-07-2013 MARGIE ASHLIE E PREV PRSC IMPL SUBDERMAL CONTRACEPT V255 INSERTION 09-07-2013 MARGIE ASHL[place] [address] CALCU 08-03-2013 MIKE JR SMITH CHAPINCITO W/ACUT CHOLCYST W/O MENTION OBST 30840 CALCU 07-15-2013 ADALBERTOCHANTALE GARCIAADD GABRIELA W/O MENTION CHOLECYST/O BST 8920 OPEN WOUND 02-13-[address] FT NO TOE ALONE WITHOUT MENTION COMP V065 NEED 02-13-2013 [facility] VACCINATION W/TETANUS-D IPHTH 80747 UNSPECIFIED 07-01-2012 [facility] ESOTROPIA 3829 UNSPECIFIED 06-27-2012 [facility] 7061 OTHER ACNE 03-14-2011 [facility] GE V5869 LONG-TERM 03-14-2011 YANIV SEVILLA (CURRENT) MD USE OF CONSULTING OTHER SRV MEDICATIONS V2502 [...] MICROCEPHAL 03-28-2009 [place] [facility] 18410 INSOMNIA 12-05-2008 [facility] [place] UNSPECIFIED [facility]RE[facility] 20662 OTHER 05-25-2008 [place] [facility] V7189 OBSERVATION 05-25-2008 [facility] SPECIFIED SUSPECTED CONDITIONS 3670 HYPERMETROP 03-25-2008 PREET ORTIZ 7502 UNSPEC 03-16-2008 [facility] LOCAL DON R INFECTION SKIN&SUBCUT ANEOUS TISSUE 88989 UNSPEC 12-15-2007 [facility] EPILEPSY DON R WITHOUT MENTION INTRACT EPILEPSY V202 ROUTINE 09-30-2007 [facility] ACCT CHECK Medications Na ND [...] E NT HI AN A CO 50 10 [...] .0 ST 52 EP ti 24 3- 9 00 SI 58 HE ve 80 20 20 DE NS 20 10 10 5 PH DO AR N MA R CY OF CY NT HI AN A DI 00 12 12 [address] Ac PH 60 -2 -[address] 58 EP ti EN 33 9- 9 SI 72 HE ve HY 34 20 [...] 1- 1- 00 SI 77 HE ve WA 50 20 20 DE NS AM 81 [...] 7- 7- 00 SI 21 Av ve WA 00 20 20 DE ai AM 70 [...] 7- 7- 00 SI 21 Av ve WA 34 20 20 DE ai AM 40 [...] 7- 7- 00 SI 37 HE ve WA 34 20 20 DE NS AM 30 [...] 3- 3- 00 SI 08 HE ve WA 34 20 20 DE NS AM 30 [...] 8- 5- 00 SI 48 Av ve WA 34 20 20 DE ai AM 30 10 10 la 5 PH bl HB AR e R MA 20 CY MG OF TA CY BL NT ET HI AN A CI 00 02 02 00 45 30 EA 16 No Ac TA 37 -0 -[address] 29 t ti LO 86 8- 6- 00 SI 48 Av ve WA 23 20 20 DE ai AM 20 [...] 0- 4- 00 SI 48 Av ve WA 23 20 20 DE ai AM 20 [...] 2- 7- 00 SI 95 Av ve WA 34 20 20 DE ai AM 40 [...] ET HI AN A CI 55 11 11 00 15 30 EA 14 No Ac TA 11 -0 -[address] 93 t ti LO 10 2- 9- 00 SI 95 Av ve WA 34 20 20 DE ai AM 40 09 09 la 1 PH bl HB AR e R MA 40 CY MG OF CY TA NT BL HI ET AN A TR 60 11 11 00 [...] 1- 8- 00 SI 53 Av ve WA 34 20 20 DE ai AM 40 [...] 1- 0- 00 SI 53 Av ve WA 34 20 20 DE ai AM 40 [...] ET HI AN A AB 59 07 08 [...] 3- 3- 00 SI 85 ER ve WA 34 20 20 DE T AM 40 09 09 TA 1 PH ME HB AR LA R MA G 40 CY MG OF CY TA NT BL HI ET AN A CO 50 07 07 00 [...] 3- 6- 00 SI 85 ER ve WA 34 20 20 DE T AM 40 [...] CY OF CY NT HI AN A Encounters Encounter Start End Date Code Location Performer Type Date [facility] - [facility] 7 [facility] [place] [address] [facility] - 7 7 [facility] JUDY - 7 7 [facility] JUDY - 7 7 [facility] JUDY - 6 6 [facility] JUDY - 3 3 [facility] [place] [address] [address] [facility] [place] [address] [address] [facility]
--- OUTSIDE RECORDS SUMMARY | 2017-05-08 12:56 | External Medical Summary Rpt | CCD ---
Author Author , JESSICA LOPEZ Address Unknown Phone [email or web address] Care Team Providers Care Hall Clerk Name Role Phone ALFARIS MOH, ALFARIS Unavailable Unavailable MOH ALLRAN JR CHAPINCITO, ALLRAN Unavailable Unavailable JR CHAPINCITO BAY, GARRET A, BAY, Unavailable Unavailable GARRET A [facility] Unavailable Unavailable SERVICE, [facility] HUNTER, KAL C, Unavailable Unavailable HUNTER, KAL C MARGIE DAILEY, HANSON Unavailable Unavailable [facility] Unavailable Unavailable [place], [facility] [place] [facility] Unavailable Unavailable [facility] GABRIELA, Unavailable Unavailable [facility] Unavailable Unavailable [place], [facility] [place] [facility] Unavailable Un[place], [facility] [place] DEVIN, TOUFIC A, Unavailable Unavailable DEVIN, TOUFIC A [facility] Unavailable Unavailable [facility] Unavailable Unavailable INC, [facility] JEREMIAH ORTIZ A, Unavailable Unavailable JEREMIAH ORTIZ A [facility], Unavailable Unavailable [facility] JOSE ALEJANDRO TODD Unavailable Unavailable [facility] Unavailable Unavailable SERVICES, [facility], [facility] Unavailable Unavailable [facility] Unavailable [facility] YANIV SEVILLA MD Unavailable Unavailable CONSULTING SRVYANIV MD CONSULTING SRV [facility], Unavailable Unavailable PLLC, [facility], [facility] Unavailable Unavailable [id number] [address] 0[address], [facility] [address] [address] 0[address] SCIFRES ANG, SCIFRES Unavailable Unavailable JAYCOB MARTÍNEZ DON, Unavailable Unavailable MARTÍNEZEMANUEL VILLEDA R, Unavailable Unavailable EMANUEL MARTÍNEZ R [facility], Unavailable Unavailable [facility] Unavailable Unavailable [address]591, [facility] YOLIS ROSALES Unavailable Unavailable [facility] Unavailable Unavailable [place], [facility] [place] Purpose Continuity of Care Document - 09-30-2007 through 2016 Problems Code Diagnosis DOS Provider Status R1032 LEFT LOWER 02-12-2017 [facility] Z720 TOBACCO USE 02-12-2017 [facility] [id number] LACERATION 02-07-2017 [facility] W/O FB LT PHYSICIANS UPPER ARM GROUP INITIAL ENC 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 K8010 CALCULUS GB 01-15-2017 [facility] W/[facility] CHOLECYST W/O OBSTRUCTION K819 CHOLECYSTIT 01-15-2017 [facility] IS ANESTH OF UNSPECIFIED THE BLUE R208 OTHER 01-15-2017 [facility] DISTURBANCE PHYSICIANS S OF SKIN GROUP SENSATION K8020 CALCULUS GB 01-13-2017 [facility] W/O PHYSICIANS CHOLECYSTIT GROUP IS W/O OBSTRUCTION J31511 ENCOUNTER 01-13-2017 [facility] FOR OTHER [facility] PREPROCEDUR INC AL EXAMINATION R109 UNSPECIFIED 01-10-2017 [facility] PAIN SERVICE R1901 RUQ 12-25-2016 [facility] ABDOMINAL PHYSICIANS SWELLING GROUP MASS & LUMP R1084 GENERALIZED 12-23-2016 [facility] ABDOMINAL PHYSICIANS PAIN GROUP D179 BENIGN 12-02-2016 [facility]IP[facility], NEOPLASM PLLC UNSPECIFIED 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 N926 IRREGULAR 11-21-2015 [facility] MENSTRUATIO PHYSICIANS N GROUP UNSPECIFIED Z7251 HIGH RISK 11-21-2015 [facility] Z3040 ENCOUNTER 08-01-2015 [facility] FOR PHYSICIANS SURVEILLANC GROUP E CONTRACEPTI VES UNS Z3049 ENCOUNTER 08-01-2015 [facility] FOR PHYSICIANS SURVEILLANC GROUP E OTHER CONTRACEPTI VES 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 3674 PRESBYOPIA 12-01-2014 SCIFRES ANG 3671 MYOPIA 06-30-2014 SCIFRES ANG V692 PROBLEMS 02-03-2014 COMBINED RELATED TO PHYSICIANS HIGH-RISK [place] SEXUAL BEHAVIOR 36841 UNSPECIFIED 02-02-2014 [facility] ASHLIE VAGINITIS AND VULVOVAGINI TIS 6235 LEUKORRHEA 02-02-2014 [facility] ASHLIE NOT SPECIFIED INFECTIVE 7245 UNSPECIFIED 12-29-2013 [facility] MOH BACKACHE 8479 SPRAIN AND 12-29-2013 [facility] MOH STRAIN OF UNSPECIFIED SITE OF BACK E9289 UNSPECIFIED 12-29-2013 [facility] ACCIDENT V2543 SURVEILLANC 09-07-2013 MARGIE ASHLIE E PREV PRSC IMPL SUBDERMAL CONTRACEPT V255 INSERTION 09-07-2013 MARGIE ASHLIE [place] [address] CALCU 08-03-2013 MIKE JR SMITH CHAPINCITO W/ACUT CHOLCYST W/O MENTION OBST 34812 CALCU 07-15-2013 ADALBERTOCHANTALE GARCIAADD GABRIELA W/O MENTION CHOLECYST/O BST 8920 OPEN WOUND 02-13-[address] FT NO TOE ALONE WITHOUT MENTION COMP V065 NEED 02-13-2013 [facility] INC VACCINATION W/TETANUS-D IPHTH 35051 UNSPECIFIED 07-01-2012 [facility] ESOTROPIA 3829 UNSPECIFIED 06-27-2012 [facility] 7061 OTHER ACNE [...] MICROCEPHAL 03-28-2009 [place] [facility] 21838 INSOMNIA 12-05-2008 [place] UNSPECIFIED [facility] 10843 OTHER 05-25-2008 [place] [facility] V7189 OBSERVATION 05-25-2008 [facility] SPECIFIED SUSPECTED CONDITIONS 3670 HYPERMETROP 03-25-2008 PREET ORTIZ 9603 UNSPEC 03-16-2008 [facility] LOCAL DON R INFECTION SKIN&SUBCUT ANEOUS TISSUE 68774 UNSPEC 12-15-2007 [facility] EPILEPSY DON R WITHOUT MENTION INTRACT EPILEPSY V202 ROUTINE 09-30-2007 [facility] ACCT CHECK Medications Na ND [...] 1- 1- 00 SI 77 HE ve SC 50 20 20 DE NS AM 81 [...] 7- 7- 00 SI 21 Av ve SC 00 20 20 DE ai AM 70 [...] 7- 7- 00 SI 21 Av ve SC 34 20 20 DE ai AM 40 [...] 7- 7- 00 SI 37 HE ve SC 34 20 20 DE NS AM 30 [...] 3- 3- 00 SI 08 HE ve SC 34 20 20 DE NS AM 30 [...] 8- 5- 00 SI 48 Av ve SC 34 20 20 DE ai AM 30 10 10 la 5 PH bl HB AR e R MA 20 CY MG OF TA CY BL NT ET HI AN A CI 00 02 02 00 45 30 EA 16 No Ac TA 37 -0 -[address] 29 t ti LO 86 8- 6- 00 SI 48 Av ve SC 23 20 20 DE ai AM 20 [...] 0- 4- 00 SI 48 Av ve SC 23 20 20 DE ai AM 20 [...] 2- 7- 00 SI 95 Av ve SC 34 20 20 DE ai AM 40 [...] 2- 9- 00 SI 95 Av ve SC 34 20 20 DE ai AM 40 [...] 1- 8- 00 SI 53 Av ve SC 34 20 20 DE ai AM 40 [...] 1- 0- 00 SI 53 Av ve SC 34 20 20 DE ai AM 40 [...] 3- 3- 00 SI 85 ER ve SC 34 20 20 DE T AM 40 [...] 3- 6- 00 SI 85 ER ve SC 34 20 20 DE T AM 40 [...] End Date Code Location Performer Type Date [facility] JUDY - [address] [facility] [place] [address] [address] [facility] JUDY - 7 7 [facility] JUDY - 7 7 [facility] JUDY - 7 7 [facility] JUDY - 6 6 [facility] JUDY - 3 3 [facility] [place] [address] [address] [facility] [place] [address] [facility]
--- OUTSIDE RECORDS SUMMARY | 2017-05-08 12:57 | External Medical Summary Rpt | CCD ---
Author Author , JESSICA MOODYWESLEY Address Unknown Phone [email or web address] Immunization Name Date Rout CVX Reac Dose Comm Prov Is Faci e tion ent ider Refu lity Give sed n Tdap 08-2 115 0.5 Hist GSHA No GSHA , 5-20 mL oric NE NE Adso 17 al rbed Info rmat ion - Sour ce Unsp ecif ied Tdap 04-1 115 999 Hist H149 No H149 , 6-20 oric Adso 08 al rbed Info rmat ion - Sour ce Unsp ecif ied MMR 03-0 3 999 Hist H149 No H149 2-20 oric 00 al Info rmat ion - Sour ce Unsp ecif ied Refugio 03-0 2 999 Hist H149 No H149 o-OP 2-20 oric V 00 al Info rmat ion - Sour ce Unsp ecif ied DTaP 03-0 107 999 Hist H149 No H149 , UF 2-20 oric 00 al Info rmat ion - Sour ce Unsp ecif ied Vari 10-2 21 999 Hist H149 No H149 cell 1-19 oric a 96 al Info rmat ion - Sour ce Unsp ecif ied DTP- 05-2 22 999 Hist H149 No H149 Hib 0-19 oric 96 al Info rmat ion - Sour ce Unsp ecif ied MMR 04-2 3 999 Hist H149 No H149 2-19 oric 96 al Info rmat ion - Sour ce Unsp ecif ied Hep 01-1 45 999 Hist H149 No H149 B, 8-19 oric UF 96 al Info rmat ion - Sour ce Unsp ecif ied Refugio 01-1 2 999 Hist H149 No H149 o-OP 8-19 oric V 96 al Info rmat ion - Sour ce Unsp ecif ied DTP- 01-1 Intr 22 999 Hist H149 No H149 Hib 8-19 amus oric 96 cula al r Info rmat ion - Sour ce Unsp ecif ied
--- OUTSIDE RECORDS SUMMARY | 2017-05-08 12:57 | External Medical Summary Rpt | CCD ---
Author Author , JESSICA MOODYWESLEY Address Unknown Phone [email or web address] Immunization Name Date Rout CVX Reac Dose [...]
--- OUTSIDE RECORDS SUMMARY | 2017-05-08 12:58 | External Medical Summary Rpt ---
Author Author JESSICA Michel, [employer] Address Unknown Phone Unavailable Results Urinalysis dipstick W Reflex Microscopic panel in Urine Observa Value Referen Units Interpr Notes Date tion ce etation Range Appeara CLEAR CLEAR No No No Feb 12 nce of informa informa informa 2017 Urine tion in tion in tion in 11:15 source source source PM data data data Bacteri 1+ O No No No Feb 12 a informa informa informa 2016 [Presen tion in tion in tion in 11:15 ce] in source source source PM Urine data data data sedimen t by Light microsc opy Bilirub NEGATIV NEG No No No Feb 12 in E informa informa informa 2017 [Presen tion in tion in tion in 11:15 ce] in source source source PM Urine data data data by Test strip Erythro NEGATIV NEG No No No Feb 12 cytes E informa informa informa 2016 [Presen tion in tion in tion in 11:15 ce] in source source source PM Urine data data data Color YELLOW YELLOW No No No Feb 12 of informa informa informa 2017 Urine tion in tion in tion in 11:15 source source source PM data data data Glucose NEG No No No Feb 12 [Mass/vol informati informati informati 2017 ume] in on in on in on in 11:15 PM Urine by source source source Test data data data strip Ketones NEGATIV NEG mg/dL No No Feb 12 E informa informa 2017 [Presen tion in tion in 11:15 ce] in source source PM Urine data data by Automat ed test strip Mucus NEGATIV NEG No No No Feb 12 [Presen E informa informa informa 2017 ce] in tion in tion in tion in 11:15 Urine source source source PM sedimen data data data t by Light microsc opy Nitrite NEGATIV NEG No No No Feb 12 E informa informa informa 2017 [Presen tion in tion in tion in 11:15 ce] in source source source PM Urine data data data by Test strip pH of 5.0 - 8.5 No Normal No Feb 12 Urine informati informati 2017 on in on in 11:15 PM source source data data Protein NEG mg/dL No No Feb 12 [Mass/vol informati informati 2016 ume] in on in on in 11:15 PM Urine by source source Automated data data test strip Erythro OCC 0 rbc/hpf No No Feb 12 cytes informa informa 2017 [Presen tion in tion in 11:15 ce] in source source PM Urine data data sedimen t by Light microsc opy Specific 1.005 - No Normal No Feb 12 gravity 1.030 informati informati 2017 of Urine on in on in 11:15 PM source source data data Epithel 5-10 0 - 5 #/hpf No No Feb 12 ial informa informa 2017 cells.s tion in tion in 11:15 quamous source source PM data data [Presen ce] in Urine sedimen t by Microsc opy high power field Urobili 0.2 NEG E.U./dL No No Feb 12 nogen informa informa 2016 [Presen tion in tion in 11:15 ce] in source source PM Urine data data by Test strip Leukocy [3 O wbc/hpf No No Feb 12 ava wbc/hpf informa informa 2016 [#/volu ; 5 tion in tion in 11:15 me] in wbc/hpf source source PM Urine ] data data Comprehensive metabolic 2000 panel in Serum or Plasma Observa Value Referen Units Interpr Notes Date tion ce etation Range Albumin/G 1.1 - 1.8 No Low No Feb 12 lobulin informati informati 2016 [Mass on in on in 11:15 PM ratio] in source source Serum or data data Plasma Albumin 3.4 - 5.0 gm/dL Normal No Feb 12 [Mass/vol informati 2016 ume] in on in 11:15 PM Serum or source Plasma data Alkaline 46 - 116 U/L Normal No Feb 12 phosphata informati 2016 se on in 11:15 PM [Enzymati source c data activity/ volume] in Serum or Plasma Bilirubin 0.2 - 1.0 mg/dL Normal No Feb 12 .total informati 2017 [Mass/vol on in 11:15 PM ume] in source Serum or data Plasma Urea 7 - 18 mg/dL Normal No Feb 12 nitrogen informati 2016 [Mass/vol on in 11:15 PM ume] in source Serum or data Plasma Calcium 8.5 - mg/dL Low No Feb 12 [Mass/vol 10.1 informati 2017 ume] in on in 11:15 PM Serum or source Plasma data Chloride 98 - 107 mmoL/L Normal No Feb 12 [Moles/vo informati 2017 lume] in on in 11:15 PM Serum or source Plasma data Carbon 21.0 - mmoL/L Normal No Feb 12 dioxide, 32.0 informati 2017 total on in 11:15 PM [Moles/vo source lume] in data Serum or Plasma Creatinin 0.55 - mg/dL High No Feb 12 e 1.02 informati 2016 [Mass/vol on in 11:15 PM ume] in source Serum or data Plasma Creatinin 50 - 200 ML/MIN Normal No Feb 12 e renal inform 2017 clearance on in 11:15 PM source predicted data by Cockcroft -Gault formula Estimated 59- ML/MIN Low REFERENCE Feb 12 RANGE: 2017 glomerula >60 11:15 PM r ML/MIN/1. filtratio 73 SQUARE n rate METERSIf (GF this patient is -A merican, then multiply theresult by 1.210. Globulin 1.3 - 3.2 gm/dL High No Feb 12 [Mass/vol informati 2017 ume] in on in 11:15 PM Serum source data Glucose 74 - 106 mg/dL Normal No Feb 12 [Mass/vol informati 2016 ume] in on in 11:15 PM Serum or source Plasma data Potassium 3.5 - 5.1 mmoL/L Normal No Feb 12 inform2016 [Moles/vo on in 11:15 PM lume] in source Serum or data Plasma Sodium 136 - 145 mmoL/L Normal No Feb 12 [Moles/vo informati 2017 lume] in on in 11:15 PM Serum or source Plasma data Aspartate 15 - 37 U/L Low No Feb 12 inform2016 aminotran on in 11:15 PM sferase source [Enzymati data c activity/ volume] in Serum or Plasma Alanine 12 - 78 U/L Normal No Feb 12 aminotran informati 2016 sferase on in 11:15 PM [Enzymati source c data activity/ volume] in Serum or Plasma Protein 6.4 - 8.2 gm/dL Normal No Feb 12 [Mass/vol inform2016 ume] in on in 11:15 PM Serum or source Plasma data CBC W Auto Differential panel in Blood Observa Value Referen Units Interpr Notes Date tion ce etation Range Basophils 0 - 0.2 K/MM3 Normal No Feb 122016 [#/volume on in 11:15 PM ] in source Blood by data Automated count Basophils 0.1 - 2.0 % Normal No Feb 12 /100 inform2016 leukocyte on in 11:15 PM s in source Blood by data Automated count Eosinophi 0.0 - 0.4 K/mm3 Normal No Feb 12 ls 2016 [#/volume on in 11:15 PM ] in source Blood by data Automated count Eosinophi 0.1 - % Normal No Feb 12 ls/100 12.0 2016 leukocyte on in 11:15 PM s in source Blood by data Automated count Granulocy 1.8 - 7.8 K/mm3 Normal No Feb 12 ava 2016 [#/volume on in 11:15 PM ] in source Blood by data Automated count Granulocy 37.0 - % Normal No Feb 12 ava/100 80.0 2016 leukocyte on in 11:15 PM s in source Blood by data Automated count Hematocri 37.0 - % Normal No Feb 12 t [Volume 47.0 2016 on in 11:15 PM Fraction] source of Blood data Hemoglobi 12.2 - g/dL Normal No Feb 12 n 16.2 2016 [Mass/vol on in 11:15 PM ume] in source Blood data Lymphocyt 0.7 - 4.5 K/mm3 Normal No Feb 12 es 2016 [#/volume on in 11:15 PM ] in source Unspecifi data ed specimen by Automated count Lymphocyt 10 - 50.0 % Normal No Feb 12 es inform2016 [#/volume on in 11:15 PM ] in source Unspecifi data ed specimen by Automated count Erythrocy 27 - 31.2 pg Normal No Feb 12 te mean 2016 corpuscul on in 11:15 PM ar source hemoglobi data n [Entitic mass] Erythrocy 31.8 - g/dl Normal No Feb 12 te mean 35.4 informati 2017 corpuscul on in 11:15 PM ar source hemoglobi data n concentra tion [Mass/vol ume] by Automated count Erythrocy 82.2 - fl Normal No Feb 12 te mean 97.8 2016 corpuscul on in 11:15 PM ar volume source [Entitic data volume] by Automated count Monocytes 0.1 - 1.0 K/mm3 Normal No Feb 122016 [#/volume on in 11:15 PM ] in source Blood by data Automated count Monocytes 1.7 - 9.3 % Normal No Feb 12 /100 2017 leukocyte on in 11:15 PM s in source Blood by data Automated count Platelet 7.4 - fl Normal No Feb 12 mean 10.4 2016 volume on in 11:15 PM [Entitic source volume] data in Blood by Automated count Platelets 142 - 424 K/mm3 Normal No Feb 122016 [#/volume on in 11:15 PM ] in source Blood data Erythrocy 4.2 - 5.4 M/mm3 Normal No Feb 12 ava 2016 [#/volume on in 11:15 PM ] in source Amniotic data fluid Erythrocy 11.5 - % Normal No Feb 12 te 17.5 2016 distribut on in 11:15 PM ion width source [Entitic data volume] by Automated count Leukocyte 4.8 - K/MM3 Normal No Feb 12 s 10.8 2016 [#/volume on in 11:15 PM ] in source Blood data Choriogonadotropin.beta subunit [Units] in 24 hour Urine Observa Value Referen Units Interpr Notes Date tion ce etation Range Choriogon NEG No No No Feb 12 adotropin informati informati ati 2016 .beta on in on in on in 11:15 PM subunit source source source [Units] data data data in 24 hour Urine Urinalysis dipstick W Reflex Microscopic panel in Urine Observa Value Referen Units Interpr Notes Date tion ce etation Range Appeara CLEAR CLEAR No No No Feb 12 nce of informa informa informa 2016 Urine tion in tion in tion in 11:15 source source source PM data data data Bilirub NEGATIV NEG No No No Feb 12 in E informa informa informa 2016 [Presen tion in tion in tion in 11:15 ce] in source source source PM Urine data data data by Test strip Erythro NEGATIV NEG No No No Feb 12 cytes E informa informa informa 2017 [Presen tion in tion in tion in 11:15 ce] in source source source PM Urine data data data Color YELLOW YELLOW No No No Feb 12 of informa informa informa 2017 Urine tion in tion in tion in 11:15 source source source PM data data data Glucose NEG No No No Feb 12 [Mass/vol informati informati informati 2017 ume] in on in on in on in 11:15 PM Urine by source source source Test data data data strip Ketones NEGATIV NEG mg/dL No No Feb 12 E informa informa 2016 [Presen tion in tion in 11:15 ce] in source source PM Urine data data by Automat ed test strip Mucus NEGATIV NEG No No No Feb 12 [Presen E informa informa informa 2017 ce] in tion in tion in tion in 11:15 Urine source source source PM sedimen data data data t by Light microsc opy Nitrite NEGATIV NEG No No No Feb 12 E informa informa informa 2016 [Presen tion in tion in tion in 11:15 ce] in source source source PM Urine data data data by Test strip pH of 5.0 - 8.5 No Normal No Feb 12 Urine informati informati 2017 on in on in 11:15 PM source source data data Protein NEG mg/dL No No Feb 12 [Mass/vol informati informati 2017 ume] in on in on in 11:15 PM Urine by source source Automated data data test strip Specific 1.005 - No Normal No Feb 12 gravity 1.030 informati informati 2016 of Urine on in on in 11:15 PM source source data data Urobili 0.2 NEG E.U./dL No No Feb 12 nogen informa informa 2016 [Presen tion in tion in 11:15 ce] in source source PM Urine data data by Test strip Comprehensive metabolic 2000 panel in Serum or Plasma Observa Value Referen Units Interpr Notes Date tion ce etation Range Albumin/G 1.1 - 1.8 No Normal No Jan 13 lobulin informati informati 2017 1:58 [Mass on in on in PM ratio] in source source Serum or data data Plasma Albumin 3.4 - 5.0 gm/dL Normal No Jan 13 [Mass/vol informati 2017 1:58 ume] in on in PM Serum or source Plasma data Alkaline 46 - 116 U/L Normal No Jan 13 phosphata informati 2017 1:58 se on in PM [Enzymati source c data activity/ volume] in Serum or Plasma Bilirubin 0.2 - 1.0 mg/dL Normal No Jan 13 .total informati 2017 1:58 [Mass/vol on in PM ume] in source Serum or data Plasma Urea 7 - 18 mg/dL Normal No Jan 13 nitrogen informati 2017 1:58 [Mass/vol on in PM ume] in source Serum or data Plasma Calcium 8.5 - mg/dL Normal No Jan 13 [Mass/vol 10.1 informati 2017 1:58 ume] in on in PM Serum or source Plasma data Chloride 98 - 107 mmoL/L Normal No Jan 13 [Moles/vo informati 2017 1:58 lume] in on in PM Serum or source Plasma data Carbon 21.0 - mmoL/L Normal No Jan 13 dioxide, 32.0 informati 2017 1:58 total on in PM [Moles/vo source lume] in data Serum or Plasma Creatinin 0.55 - mg/dL Normal No Jan 13 e 1.02 informati 2017 1:58 [Mass/vol on in PM ume] in source Serum or data Plasma Estimated 59- ML/MIN No REFERENCE Jan 13 informati RANGE: 2017 1:58 glomerula on in >60 PM r source ML/MIN/1. filtratio data 73 SQUARE n rate METERSIf (GF this patient is -A merican, then multiply theresult by 1.210. Globulin 1.3 - 3.2 gm/dL High No Jan 13 [Mass/vol informati 2017 1:58 ume] in on in PM Serum source data Glucose 74 - 106 mg/dL Normal No Jan 13 [Mass/vol informati 2017 1:58 ume] in on in PM Serum or source Plasma data Potassium 3.5 - 5.1 mmoL/L Normal No Jan 13 informati 2017 1:58 [Moles/vo on in PM lume] in source Serum or data Plasma Sodium 136 - 145 mmoL/L Normal No Jan 13 [Moles/vo informati 2017 1:58 lume] in on in PM Serum or source Plasma data Aspartate 15 - 37 U/L Low No Jan 13 inform2016 1:58 aminotran on in PM sferase source [Enzymati data c activity/ volume] in Serum or Plasma Alanine 12 - 78 U/L Normal No Jan 13 aminotran 2016 1:58 sferase on in PM [Enzymati source c data activity/ volume] in Serum or Plasma Protein 6.4 - 8.2 gm/dL Normal No Jan 13 [Mass/vol informati 2016 1:58 ume] in on in PM Serum or source Plasma data Choriogonadotropin [Units/volume] in Serum or Plasma Observa Value Referen Units Interpr Notes Date tion ce etation Range Choriogon NEG No No No Jan 13 adotropin informati informati informati 2016 1:58 on in on in on in PM [Units/vo source source source lume] in data data data Serum or Plasma CBC W Auto Differential panel in Blood Observa Value Referen Units Interpr Notes Date tion ce etation Range Basophils 0 - 0.2 K/MM3 Normal No Jan 132016 1:58 [#/volume on in PM ] in source Blood by data Automated count Basophils 0.1 - 2.0 % Normal No Jan 13 / informati 2016 1:58 leukocyte on in PM s in source Blood by data Automated count Eosinophi 0.0 - 0.4 K/mm3 Normal No Jan 13 ls informati 2016 1:58 [#/volume on in PM ] in source Blood by data Automated count Eosinophi 0.1 - % Normal No Jan 13 ls/100 12.0 informati 2016 1:58 leukocyte on in PM s in source Blood by data Automated count Granulocy 1.8 - 7.8 K/mm3 Normal No Jan 13 ava informati 2016 1:58 [#/volume on in PM ] in source Blood by data Automated count Granulocy 37.0 - % Normal No Jan 13 ava/100 80.0 informati 2016 1:58 leukocyte on in PM s in source Blood by data Automated count Hematocri 37.0 - % Normal No Jan 13 t [Volume 47.0 informati 2016 1:58 on in PM Fraction] source of Blood data Hemoglobi 12.2 - g/dL Normal No Jan 13 n 16.2 informati 2016 1:58 [Mass/vol on in PM ume] in source Blood data Lymphocyt 0.7 - 4.5 K/mm3 Normal No Jan 13 es informati 2016 1:58 [#/volume on in PM ] in source Unspecifi data ed specimen by Automated count Lymphocyt 10 - 50.0 % Normal No Jan 13 es informati 2016 1:58 [#/volume on in PM ] in source Unspecifi data ed specimen by Automated count Erythrocy 27 - 31.2 pg Normal No Jan 13 te mean informati 2016 1:58 corpuscul on in PM ar source hemoglobi data n [Entitic mass] Erythrocy 31.8 - g/dl Normal No Jan 13 te mean 35.4 informati 2016 1:58 corpuscul on in PM ar source hemoglobi data n concentra tion [Mass/vol ume] by Automated count Erythrocy 82.2 - fl Normal No Jan 13 te mean 97.8 informati 2016 1:58 corpuscul on in PM ar volume source [Entitic data volume] by Automated count Monocytes 0.1 - 1.0 K/mm3 Normal No Jan 13 informati 2016 1:58 [#/volume on in PM ] in source Blood by data Automated count Monocytes 1.7 - 9.3 % Normal No Jan 13 /100 informati 2017 1:58 leukocyte on in PM s in source Blood by data Automated count Platelet 7.4 - fl Normal No Jan 13 mean 10.4 informati 2017 1:58 volume on in PM [Entitic source volume] data in Blood by Automated count Platelets 142 - 424 K/mm3 Normal No Jan 13 informati 2016 1:58 [#/volume on in PM ] in source Blood data Erythrocy 4.2 - 5.4 M/mm3 Normal No Jan 13 ava informati 2016 1:58 [#/volume on in PM ] in source Amniotic data fluid Erythrocy 11.5 - % Normal No Jan 13 te 17.5 informati 2016 1:58 distribut on in PM ion width source [Entitic data volume] by Automated count Leukocyte 4.8 - K/MM3 Normal No Jan 13 s 10.8 informati 2016 1:58 [#/volume on in PM ] in source Blood data Amylase [Enzymatic activity/volume] in Serum or Plasma Observa Value Referen Units Interpr Notes Date tion ce etation Range Amylase 25 - 115 U/L Normal No Jan 10 [Enzymati informati 2016 7:15 c on in AM activity/ source volume] data in Serum or Plasma Comprehensive metabolic 2000 panel in Serum or Plasma Observa Value Referen Units Interpr Notes Date tion ce etation Range Albumin/G 1.1 - 1.8 No Low No Jan 10 lobulin informati informati 2016 7:15 [Mass on in on in AM ratio] in source source Serum or data data Plasma Albumin 3.4 - 5.0 gm/dL Normal No Jan 10 [Mass/vol informati 2016 7:15 ume] in on in AM Serum or source Plasma data Alkaline 46 - 116 U/L Normal No Jan 10 phosphata informati 2016 7:15 se on in AM [Enzymati source c data activity/ volume] in Serum or Plasma Bilirubin 0.2 - 1.0 mg/dL Normal No Jan 10 .total informati 2016 7:15 [Mass/vol on in AM ume] in source Serum or data Plasma Urea 7 - 18 mg/dL Normal No Jan 10 nitrogen informati 2016 7:15 [Mass/vol on in AM ume] in source Serum or data Plasma Calcium 8.5 - mg/dL Normal No Jan 10 [Mass/vol 10.1 informati 2016 7:15 ume] in on in AM Serum or source Plasma data Chloride 98 - 107 mmoL/L Normal No Jan 10 [Moles/vo informati 2016 7:15 lume] in on in AM Serum or source Plasma data Carbon 21.0 - mmoL/L Normal No Jan 10 dioxide, 32.0 informati 2017 7:15 total on in AM [Moles/vo source lume] in data Serum or Plasma Creatinin 0.55 - mg/dL Normal No Jan 10 e 1.02 informati 2016 7:15 [Mass/vol on in AM ume] in source Serum or data Plasma Creatinin 50 - 200 ML/MIN Normal No Jan 10 e renal informati 2016 7:15 clearance on in AM source predicted data by Cockcroft -Gault formula Estimated 59- ML/MIN No REFERENCE Jan 10 informati RANGE: 2017 7:15 glomerula on in >60 AM r source ML/MIN/1. filtratio data 73 SQUARE n rate METERSIf (GF this patient is -A merican, then multiply theresult by 1.210. Globulin 1.3 - 3.2 gm/dL High No Jan 10 [Mass/vol informati 2016 7:15 ume] in on in AM Serum source data Glucose 74 - 106 mg/dL High No Jan 10 [Mass/vol informati 2016 7:15 ume] in on in AM Serum or source Plasma data Potassium 3.5 - 5.1 mmoL/L Normal No Jan 10 informati 2016 7:15 [Moles/vo on in AM lume] in source Serum or data Plasma Sodium 136 - 145 mmoL/L Normal No Jan 10 [Moles/vo informati 2016 7:15 lume] in on in AM Serum or source Plasma data Aspartate 15 - 37 U/L Low No Jan 10 informati 2016 7:15 aminotran on in AM sferase source [Enzymati data c activity/ volume] in Serum or Plasma Alanine 12 - 78 U/L Normal No Jan 10 aminotran ati 2016 7:15 sferase on in AM [Enzymati source c data activity/ volume] in Serum or Plasma Protein 6.4 - 8.2 gm/dL Normal No Jan 10 [Mass/vol informati 2016 7:15 ume] in on in AM Serum or source Plasma data Lipase [Enzymatic activity/volume] in Serum or Plasma Observa Value Referen Units Interpr Notes Date tion ce etation Range Lipase 73 - 393 U/L Normal No Jan 10 [Enzymati informati 2016 7:15 c on in AM activity/ source volume] data in Serum or Plasma CBC W Auto Differential panel in Blood Observa Value Referen Units Interpr Notes Date tion ce etation Range Basophils 0 - 0.2 K/MM3 Normal No Jan 102016 7:15 [#/volume on in AM ] in source Blood by data Automated count Basophils 0.1 - 2.0 % Normal No Jan 10 informati 2016 7:15 leukocyte on in AM s in source Blood by data Automated count Eosinophi 0.0 - 0.4 K/mm3 Normal No Jan 10 ls informati 2016 7:15 [#/volume on in AM ] in source Blood by data Automated count Eosinophi 0.1 - % Normal No Jan 10 ls/100 12.0 informati 2016 7:15 leukocyte on in AM s in source Blood by data Automated count Granulocy 1.8 - 7.8 K/mm3 High No Jan 10 ava informati 2016 7:15 [#/volume on in AM ] in source Blood by data Automated count Granulocy 37.0 - % Normal No Jan 10 ava/100 80.0 informati 2016 7:15 leukocyte on in AM s in source Blood by data Automated count Hematocri 37.0 - % Normal No Jan 10 t [Volume 47.0 informati 2016 7:15 on in AM Fraction] source of Blood data Hemoglobi 12.2 - g/dL Normal No Jan 10 n 16.2 informati 2016 7:15 [Mass/vol on in AM ume] in source Blood data Lymphocyt 0.7 - 4.5 K/mm3 Normal No Jan 10 es informati 2016 7:15 [#/volume on in AM ] in source Unspecifi data ed specimen by Automated count Lymphocyt 10 - 50.0 % Normal No Jan 10 es informati 2016 7:15 [#/volume on in AM ] in source Unspecifi data ed specimen by Automated count Erythrocy 27 - 31.2 pg Normal No Jan 10 te mean informati 2016 7:15 corpuscul on in AM ar source hemoglobi data n [Entitic mass] Erythrocy 31.8 - g/dl Normal No Jan 10 te mean 35.4 informati 2016 7:15 corpuscul on in AM ar source hemoglobi data n concentra tion [Mass/vol ume] by Automated count Erythrocy 82.2 - fl Normal No Jan 10 te mean 97.8 informati 2017 7:15 corpuscul on in AM ar volume source [Entitic data volume] by Automated count Monocytes 0.1 - 1.0 K/mm3 Normal No Jan 10 informati 2016 7:15 [#/volume on in AM ] in source Blood by data Automated count Monocytes 1.7 - 9.3 % Normal No Jan 10 /100 informati 2017 7:15 leukocyte on in AM s in source Blood by data Automated count Platelet 7.4 - fl Normal No Jan 10 mean 10.4 informati 2016 7:15 volume on in AM [Entitic source volume] data in Blood by Automated count Platelets 142 - 424 K/mm3 No No Jan 10 informati informati 2017 7:15 [#/volume on in on in AM ] in source source Blood data data Erythrocy 4.2 - 5.4 M/mm3 Normal No Jan 10 ava informati 2016 7:15 [#/volume on in AM ] in source Amniotic data fluid Erythrocy 11.5 - % Normal No Jan 10 te 17.5 informati 2017 7:15 distribut on in AM ion width source [Entitic data volume] by Automated count Leukocyte 4.8 - K/MM3 High No Jan 10 s 10.8 informati 2017 7:15 [#/volume on in AM ] in source Blood data Urinalysis dipstick W Reflex Microscopic panel in Urine Observa Value Referen Units Interpr Notes Date tion ce etation Range Appeara CLOUDY CLEAR No No No Jan 10 nce of informa informa informa 2016 Urine tion in tion in tion in 6:25 AM source source source data data data Bacteri 4+ O No No No Jan 10 a informa informa informa 2016 [Presen tion in tion in tion in 6:25 AM ce] in source source source Urine data data data sedimen t by Light microsc opy Bilirub NEGATIV NEG No No No Jan 10 in E informa informa informa 2016 [Presen tion in tion in tion in 6:25 AM ce] in source source source Urine data data data by Test strip Erythro NEGATIV NEG No No No Jan 10 cytes E informa informa informa 2016 [Presen tion in tion in tion in 6:25 AM ce] in source source source Urine data data data Color YELLOW YELLOW No No No Jan 10 of informa informa informa 2016 Urine tion in tion in tion in 6:25 AM source source source data data data Glucose NEG No No No Jan 10 [Mass/vol informati informati informati 2016 6:25 ume] in on in on in on in AM Urine by source source source Test data data data strip Ketones NEGATIV NEG mg/dL No No Jan 10 E informa informa 2016 [Presen tion in tion in 6:25 AM ce] in source source Urine data data by Automat ed test strip Mucus NEGATIV NEG No No No Jan 10 [Presen E informa informa informa 2016 ce] in tion in tion in tion in 6:25 AM Urine source source source sedimen data data data t by Light microsc opy Nitrite NEGATIV NEG No No No Jan 10 E informa informa informa 2016 [Presen tion in tion in tion in 6:25 AM ce] in source source source Urine data data data by Test strip pH of 5.0 - 8.5 No Normal No Jan 10 Urine informati informati 2016 6:25 on in on in AM source source data data Protein NEG mg/dL High No Jan 10 [Mass/vol informati 2016 6:25 ume] in on in AM Urine by source Automated data test strip Specific 1.005 - No Normal No Jan 10 gravity 1.030 informati informati 2016 6:25 of Urine on in on in AM source source data data Epithel 20-50 0 - 5 #/hpf No No Jan 10 ial informa informa 2017 cells.s tion in tion in 6:25 AM quamous source source data data [Presen ce] in Urine sedimen t by Microsc opy high power field Urobili 2.0 NEG E.U./dL No No Jan 10 nogen informa informa 2016 [Presen tion in tion in 6:25 AM ce] in source source Urine data data by Test strip Leukocy [3 O wbc/hpf No No Jan 10 ava wbc/hpf informa informa 2016 [#/volu ; 5 tion in tion in 6:25 AM me] in wbc/hpf source source Urine ] data data Urinalysis dipstick W Reflex Microscopic panel in Urine Observa Value Referen Units Interpr Notes Date tion ce etation Range Appeara CLOUDY CLEAR No No No Jan 10 nce of informa informa informa 2016 Urine tion in tion in tion in 6:25 AM source source source data data data Bilirub NEGATIV NEG No No No Jan 10 in E informa informa informa 2016 [Presen tion in tion in tion in 6:25 AM ce] in source source source Urine data data data by Test strip Erythro NEGATIV NEG No No No Jan 10 cytes E informa informa informa 2016 [Presen tion in tion in tion in 6:25 AM ce] in source source source Urine data data data Color YELLOW YELLOW No No No Jan 10 of informa informa informa 2017 Urine tion in tion in tion in 6:25 AM source source source data data data Glucose NEG No No No Jan 10 [Mass/vol informati informati informati 2016 6:25 ume] in on in on in on in AM Urine by source source source Test data data data strip Ketones NEGATIV NEG mg/dL No No Jan 10 E informa informa 2016 [Presen tion in tion in 6:25 AM ce] in source source Urine data data by Automat ed test strip Mucus NEGATIV NEG No No No Jan 10 [Presen E informa informa informa 2016 ce] in tion in tion in tion in 6:25 AM Urine source source source sedimen data data data t by Light microsc opy Nitrite NEGATIV NEG No No No Jan 10 E informa informa informa 2016 [Presen tion in tion in tion in 6:25 AM ce] in source source source Urine data data data by Test strip pH of 5.0 - 8.5 No Normal No Jan 10 Urine informati informati 2016 6:25 on in on in AM source source data data Protein NEG mg/dL High No Jan 10 [Mass/vol informati 2016 6:25 ume] in on in AM Urine by source Automated data test strip Specific 1.005 - No Normal No Jan 10 gravity 1.030 informati informati 2016 6:25 of Urine on in on in AM source source data data Urobili 2.0 NEG E.U./dL No No Jan 10 nogen informa informa 2016 [Presen tion in tion in 6:25 AM ce] in source source Urine data data by Test strip Choriogonadotropin.beta subunit [Units] in 24 hour Urine Observa Value Referen Units Interpr Notes Date tion ce etation Range Choriogon NEG No No No Jan 10 adotropin informati informati informati 2017 6:25 .beta on in on in on in AM subunit source source source [Units] data data data in 24 hour Urine Amylase [Enzymatic activity/volume] in Serum or Plasma [...] Low No Dec 02 lobulin informati informati 2016 8:05 [Mass on in on in PM [...] mg/dL Normal No Dec 02 nitrogen informati 2017 8:05 [Mass/vol on in PM ume] in source Serum or data Plasma Calcium 8.5 - mg/dL Normal No Dec 02 [Mass/vol 10.1 informati 2016 8:05 ume] in on in [...] Normal No Dec 02 e 1.02 informati 2016 8:05 [Mass/vol on in PM [...] mg/dL Normal No Dec 02 [Mass/vol informati 2017 8:05 ume] in on in PM Serum or source Plasma data Potassium 3.5 - 5.1 mmoL/L Normal No Dec 02 informati 2017 8:05 [Moles/vo on in PM lume] in source Serum or data Plasma Sodium 136 - 145 mmoL/L Normal No Dec 02 [Moles/vo informati 2016 8:05 lume] in on in PM Serum or source Plasma data Aspartate 15 - 37 U/L Low No Dec 02 inform2016 8:05 aminotran on in PM sferase source [Enzymati data c activity/ volume] in Serum or Plasma Alanine 12 - 78 U/L Normal No Dec 02 aminotran inform2016 8:05 sferase on in PM [Enzymati source [...] 0 - 0.2 K/MM3 Normal No Dec 022016 8:05 [#/volume on in PM ] in source Blood by data Automated count Basophils 0.1 - 2.0 % Normal No Dec 02 /100 informati 2016 8:05 leukocyte on in PM s in source Blood by data Automated count Eosinophi 0.0 - 0.4 K/mm3 Normal No Dec 02 ls informati 2016 8:05 [#/volume on in PM ] in source Blood by data Automated count Eosinophi 0.1 - % Normal No Dec 02 ls/100 12.0 informati 2016 8:05 leukocyte on in PM [...] No Dec 02 te mean 35.4 informati 2017 8:05 corpuscul on in PM ar source hemoglobi data n concentra tion [Mass/vol ume] by Automated count Erythrocy 82.2 - fl Normal No Dec 02 te mean 97.8 informati 2016 8:05 corpuscul on in PM ar volume source [Entitic data volume] by Automated count Monocytes 0.1 - 1.0 K/mm3 Normal No Dec 02 informati 2016 8:05 [#/volume on in PM ] in source Blood by data Automated count Monocytes 1.7 - 9.3 % Normal No Dec 02 /100 informati 2017 8:05 leukocyte on in PM s in source Blood by data Automated count Platelet 7.4 - fl Normal No Dec 02 mean 10.4 informati 2017 8:05 volume on in PM [Entitic source volume] data in Blood by Automated count Platelets 142 - 424 K/mm3 Normal No Dec 02 informati 2017 8:05 [#/volume on in PM ] in source Blood data Erythrocy 4.2 - 5.4 M/mm3 Normal No Dec 02 ava informati 2017 8:05 [#/volume on in PM [...] No Dec 02 adotropin informati informati informati 2017 7:40 .beta on in on in on in PM subunit source source source [Units] data data data in 24 hour Urine
--- NOTE | 2017-05-08 13:09 | Emergency Room Report ---
History of Present Illness Time Seen by MD Zamorano Presenting Problem in Triage Pt arrived:Walked Presenting Problem:PT C/O ABD PAIN AND CONSTIPATION. PT STATES THAT SHE HAS PRESSURE IN THE FRONT OF HER ABD SINCE YESTERDAY. 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 N Clinical Suspician of Infection? N Mental Status: 1 - Regular (Normal Baseline) Sepsis Risk:Low Sepsis Risk Have you (or family members/close friends) recently traveled outside the [place]? N If Yes, where/when: Have you had exposure to infectious disease within the past month? N TB? Other? Specify: 22 years old white female who is a poor historian. She has a history of attention deficit/hyperactivity disorder and bipolar and depression. She is status post cholecystectomy 2 months ago. He presented to the ED with 2 days history of constipation diffuse abdominal pain and blood in the urine. She denies having fever or chills vomiting or diarrhea. She denies having flank pain. Denies having shortness of breath chest pain or palpitations. She is a smoker, she is sexually active without control. Source patient, RN notes reviewed Exam Limitations no limitations ALLERGIES Coded Allergies: No Known Allergies (01/15/17) Home Medications Reported Medications No Home Medications (NO HOME MEDICATIONS) 1 EACH XX ONCE Medroxyprogesterone Acetate (Depo-Provera) 150 MG IM Q 3 MONTHS Dicyclomine Hcl (Bentyl (Generic) 10MG Capsule) 10 MG PO QID History Medical History General CAD? No Angina: No [place]: No Hypertension? No Hyperlipidemia? No CHF? No DVT? No PE? No COPD? No Asthma? No Anemia? No GERD? No Gastric ulcers? No GI Bleed? No Hernia? No Thyroid Problems? No Hypothyroidism? No CVA? No Seizures? Yes Diabetes? No Renal Insuffiency? No End Stage Renal Disease? No UTI? No Stones? No BPH? No GB Disease: Yes Nephritic Syndrome? No Asplenia? No Hepatitis? No Sickle Cell Disease? No Arthritis? No Migraines? No Cataracts? No Glaucoma? No MRSA? No HIV? No TB? No Anxiety? Yes Depression? Yes Cancer? No More? 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 Respiratory no symptoms reported Cardiovascular no symptoms reported Gastrointestinal see HPI, abdominal pain (SEE HISTORY OF PRESENT ILLNESS) Genitourinary see HPI, hematuria. Musculoskeletal no symptoms reported Skin no symptoms reported Psychiatric/Neurological no symptoms reported Physical Exam Vital Signs Vital Signs Date Time Temp Pulse Resp B/P Pulse O2 O2 Flow FiO2 Ox Delivery Rate 05/08 1431 107 14 167/84 97 05/08 1251 98.2 83 18 141/87 97 - WBC >12,000 or <4,000 or 10% bands? 2 or more SIRS Criteria Met? B/P:141/87 MAP:105 Creatinine >2.0? UA output<0.5ml/kg/hr for 2 hrs? Platelet count >100,000? Lactate >2.0mmol/1? INR >1.2 or PTT > than 60 sec? Evidence of Organ Dysfunction? Provider documented clinical suspician of infection? N Sepsis Criteria Count: 0 Sepsis Risk: Low Sepsis Risk General Appearance normal appearance, WD/WN Eye Exam - bilateral eye normal exam, bilateral eye PERRL, bilateral eye EOMI Ear, Nose, Throat hearing grossly normal, normal ENT inspection Neck normal inspection, non-tender, supple, full range of motion Respiratory Status Yes: trachea midline, chest symmetrical, non tender chest. No: respiratory distress. Lung Sounds bilateral: normal breath sounds, lungs clear. Cardiovascular normal exam, regular rate/rhythm, no peripheral edema, no gallop, no JVD, no murmur, no rub, normal peripheral pulses Peripheral Pulses Pulses normal Yes Gastrointestinal normal bowel sounds, no organomegaly, no pulsatile mass, no guarding, no rebound, tenderness, OBESE SOFT ABDOMEN, DIFFUSE TENDERNESS MOSTLY ON THE left SIDE. nO FOCAL TENDERNESS. nO REBOUND OR CROSS TENDERNESS. nO GUARDING NO RIGIDITY. aCTIVE BOWEL SOUNDS. 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 No Results/Orders Laboratory Tests 05/08/17 1430: Sodium 142, Potassium 3.7, Chloride 106, Carbon Dioxide 28, BUN 17, Creatinine 1.0, Estimated Creat Clear 122, Estimated GFR (MDRD) 69, Glucose 91, Calcium 8.9 , Total Bilirubin 0.3, AST 31, ALT 75, Alkaline Phosphatase 92, Total Protein 7.7, Albumin 3.8, Globulin 3.9 H, Albumin/Globulin Ratio 1.0 L, Lipase 100, WBC 12.3 H, RBC 4.98, Hgb 14.3, Hct 41.9, MCV 84.2, RDW 12.7, Plt Count 216, MPV 8.4, Gran % 66.4, Gran # 8.2 H, Lymphocytes % 24.3, Monocytes % 6.2, Eosinophils % 2.8, Basophils % 0.4, Lymphocytes # 3.0, Monocytes # 0.8, Eosinophils # 0.4, Basophils # 0.1, PUBS MCHC 34.1, MCH 28.7 05/08/17 1305: Urine Color YELLOW, Urine Appearance CLOUDY, Urine pH 6.0, Ur Specific [place] > = 1.030, Urine Protein 2+ H, Urine Ketones NEGATIVE, Urine Blood 3+ H, Urine Nitrate NEGATIVE, Urine Bilirubin NEGATIVE, Urine Urobilinogen 1.0, Ur Leukocyte Esterase 1+ H, Urine RBC 10-20, Urine WBC TNTC, Ur Squamous Epith Cells 3-5, Urine Bacteria 1+, Urine Mucus 1+, Urine Glucose NEGATIVE 05/08/17 1303: Opiates Screen NEGATIVE, Urine Methadone Screen NEGATIVE, Barbiturates NEGATIVE, Phencyclidine Screen NEGATIVE, Amphetamines Screen NEGATIVE, Benzodiazepines Screen NEGATIVE, Cocaine Screen NEGATIVE, Marijuana (THC) Screen NEGATIVE Orders Procedure Date/time Status DIET-NOTHING BY MOUTH 05/[address] ABD/PELVIS REQ 05/08 131 Complete LIPASE 05/08 1310 Complete DRUG ABUSE SCREEN (10) 11/23 1310 Complete CBC WITH AUTO DIFF 05/08 1310 Complete CHEM 12 PROFILE 05/08 1310 Complete CULTURE, URINE 05/08 1305 Active URINALYSIS/COMPLETE 05/08 1257 Complete URINE 05/08 1257 Complete Departure Departure Time of Disposition 1520 Disposition DC Home or Self Care(routine) Clinical Impression Primary Impression: UTI (urinary tract infection) Secondary Impressions: Constipation, Depressed bipolar affective disorder Condition STABLE Referrals Sarath SALGADO,A.C. Additional Instructions I DISCUSSED WITH THE PATIENT HER CT SCAN THAT IS NEGATIVE FOR APPENDICITIS OR OTHER SURGICAL FINDINGS, SHE HAS POSITIVE UTI. 1- DRINK PLENTY OF WATER. 2- EAT GREEN LEAFY VEGETABLES. 3- START ABX 4- BENTYL PRN CRAMPS. 5- DULCOLAX PRN CONSTIPATION. 6- SEE PCP IN AM FOR FOLLOW UP Discharge Counseling Counseled pt/family regarding diagnosis, test results, medications/RX, home care, follow up needs Prescriptions Current Visit Scripts NITROFURANTOIN MONOHYD/M-CRYST (Macrobid 100 MG Capsule) 100 MG PO Q12 #14 CAP DICYCLOMINE HCL (Bentyl) 10 MG PO Q8HP PRN CRAMPS #21 CAP Docusate Sodium (Dulcolax Stool Softener) 100 MG PO Q12HP #14 CAPSULE ED Critical Care Critical Care No If Critical Care minutes are documented, the time involved in the performance of seperately reportable procedures was not counted toward critical care time documented. I directly delivered medical care to this critically ill and/or injured patient. Timely evaluation and treatment was necessary to address the significant organ system(s) dysfunction present in this patient. at 1522
[2017-05-08 13:13] LABS: URINE BILIRUBIN - DIPSTICK NEGATIVE (NEG); URINE BLOOD 3+ (NEG)
[2017-05-08 13:26] LABS: AMPHETAMINES/METAMPHETAMINES NEGATIVE ng/mL (<1000)
--- NOTE | 2017-05-08 13:46 | RADIOLOGY REPORT PS360 ---
CT ABD PELVIS W/O CONTRAST COMPARISON: CT scan abdomen pelvis 12/02/2016 HISTORY: Left lower abdominal pain, hematuria TECHNIQUE: Multiaxial scans obtained from the hemidiaphragms the pelvic floor and were performed without IV or oral contrast. Sagittal and coronal reformats were evaluated as well. FINDINGS: The lower lung hayes are clear. The liver and spleen appear normal. The stomach is markedly distended with ingested food particles but otherwise appears normal. The pancreas is normal, there has been a previous cholecystectomy. The adrenal glands are normal. The kidneys are normal size and there are no calculi and is no obstructive uropathy. Small bowel appears normal. The appendix is normal. There is moderate scattered stool throughout the colon. The uterus and adnexa are normal, urinary bladder is partially decompressed. There is no free fluid in the pelvis. IMPRESSION: Postcholecystectomy, no acute abdominal or pelvic pathology identified.
[2017-05-08 14:37] LABS: HEMOGLOBIN 14.3 g/dL (12.2-16.2); LYMPH % 24.3 % (10-50.0)
[2017-05-08] MEDS ORDERED: BENTYL10 M1 PO (15:23)
[2017-05-08] MEDS ORDERED: DULCOLAX STOOL100 MG PO (15:23)
[2017-05-08] MEDS ORDERED: MACROBID100 M3 PO (15:23)
[2017-05-08 15:32] VITALS: BP 167/84
== END 2017-05-08 15:32 | disposition home or self-care (01) ==
LOC: ER 12:41
PROVIDERS: Emergency Medicine
DX: N39.0 Urinary tract infection, site not specified (principal); K59.00 Constipation, unspecified; F33.9 Major depressive disorder, recurrent, unspecified; F17.210 Nicotine dependence, cigarettes, uncomplicated